=== PATIENT | female | born 1935 | race Caucasian/White ===

== ENCOUNTER 2019-12-23 14:30 | Emergency (ER) | payer MEDICARE, SELFPAY ==
[2019-12-23 16:34] VITALS: BP 216/79; PULSE 80; RESP 14; TEMP 36.9; O2SAT 100
--- NOTE | 2019-12-23 16:40 | ED.WEAKNESS ---
HPI - Weakness General Chief complaint: Weakness Stated complaint: numbness in hand leg fall Time Seen by Provider: 12/23/19 16:39 Source: patient Mode of arrival: ambulatory Limitations: no limitations History of Present Illness HPI Narrative: Last week patient had weakness to her right side that lasted 5 minutes. Symptoms went away completely on their own. Complaint: focal weakness Onset (ago): minute(s) (5) Duration: constant Severity scale (1-10): 9 Quality: tingling and numbness Related Data Home Medications Medication Instructions Recorded Confirmed enalapril maleate 1.5 tab PO DAILY 12/23/19 12/23/19 levothyroxine 1 tab PO DAILY 12/23/19 12/23/19 Previous Rx's Medication Instructions Recorded aspirin [Aspirin Low Dose] 162 mg PO DAILY #60 tab 12/23/19 Allergies Allergy/AdvReac Type Severity Reaction Status Date / Time alendronate sodium Allergy Unknown UNKNOWN Unverified 11/24/19 18:42 [ALENDRONATE SODIUM] oxycodone [From OXYCONTIN] Allergy Unknown NAUSEA & Unverified 11/24/19 18:42 VOMITING, vomiting Review of Systems Constitutional: Constitutional: Reports no additional constitutional complaints Eyes: Eyes: Reports no additional eye complaints ENT: Denies dizziness Cardiovascular: Cardiovascular: Reports no additional cardiovascular complaints Respiratory: Respiratory: Reports as per HPI Gastrointestinal: Gastrointestinal: Reports no additional gastrointestinal complaints Genitourinary: Genitourinary: Reports no additional female genitourinary complaints Musculoskeletal: Musculoskeletal: Reports no additional musculoskeletal complaints Integumentary/Breasts: Skin/Breast: Denies rash Neurologic: Reports system reviewed and no additional complaints, except as documented, Denies dizziness and Reports Sensory deficit (Neuro) Psychiatric: Psychiatric: Denies anxiety [facility] Past Medical History Medical History (Updated 12/23/19 @ 19:40 by Alden Paz MD) Hypertension Hypothyroid Social History Social History Advance Directives: No Advance Directives Information Provided: Yes Physical Exam Vital Signs: Vital Signs: Vital Signs Temp Pulse Resp BP Pulse Ox 12/23/19 19:25 98.3 F 77 16 171/61 H 100 12/23/19 16:58 98.2 F 88 18 148/80 H 100 12/23/19 16:34 98.5 F 80 14 216/79 H 100 Body Mass Index 25.4 Const: General: healthy appearing Nutritional Appearance: average body habitus Orientation/consciousness: oriented to person and patient oriented x3 Limitations: no limitations HENMT: Head: Yes normal to inspection Ears: external ears normal General nose exam: Normal external nose present Mouth: Normal oral and palatal mucosa present and oropharynx normal Throat: Yes posterior oropharynx normal Eyes: General: appearance normal, both eyes and all related structures Neck: Other: supple Neck: Yes normal visual inspection Chest: Chest palpation & inspection: normal inspection of the chest Resp: Auscultation: clear to auscultation bilaterally Cardio: Jugular venous distension: no JVD Rate: regular rate Rhythm: regular rhythm Heart sounds: S1 normal heart sound present and S2 normal heart sound present GI: Inspection: Yes normal to inspection Palpation (GI): Soft to palpation, nontender and No hepatosplenomegaly present Auscultation: normal bowel sounds : General: Yes no CVA tenderness Back/Spine/Pelvis: Back: no CVA tenderness Skin: General skin exam: no rashes or lesions noted Neuro: Other: NIH stroke scale is 0 General: oriented to person and patient oriented x3 Cranial nerves: Yes CN's II-XII intact bilaterally Motor exam (neuro): 5/5 motor strength present throughout Sensory Exam: Sensory deficit (Neuro) Extrem: General: Yes normal to inspection Psych: Appearance: grossly normal Course Course Course Narrative: CT and CTA normal discussed with daughter that this is TIA MDM - Weakness MDM Narrative Medical decision making narrative: stroke vs TIA work up most consistent with TIA Lab Data Result diagrams: 12/23/19 17:47 12/23/19 17:47 Labs: Lab Results 12/23/19 12/23/19 12/23/19 Range/Units 17:47 17:47 17:47 WBC 9.7 (4.8-10.8) X10*3/uL RBC 4.16 L (4.20-5.50) X10*6/uL Hgb 13.4 (12.0-16.0) g/dl Hct 39.4 (37-47) % MCV 94.7 (80-98) fL MCH 32.2 (27.0-33.0) pg MCHC 34.0 (31.0-35.0) g/dl RDW 12.7 (11.0-16.0) % Plt Count 225 (160-400) X10*3/uL MPV 11.5 (9.4-12.3) fL Immature Gran % (Auto) 0.5 H (0.0-0.4) % Neut % (Auto) 58.1 (45-73) % Lymph % (Auto) 34.1 (20-40) % Garland % (Auto) 5.5 (2-11) % Eos % (Auto) 1.3 (0-4) % Baso % (Auto) 0.5 (0-2) % Lymph # (Auto) 3.3 (1.2-4.9) X10*3/uL Garland # (Auto) 0.5 (0.1-1.2) X10*3/uL Eos # (Auto) 0.1 (0.0-0.4) X10*3/uL Baso # (Auto) 0.1 (0.0-0.2) X10*3/uL Abs Immat Gran (auto) 0.05 H (0.00-0.03) X10*3/uL Absolute Neuts (auto) 5.7 (2.0-8.3) X10*3/uL Absolute Nucleated RBC 0.000 (0.0-0.012) X10*3/uL Nucleated RBC % (auto) 0.0 (0.0-0.2) /100WBC Sodium 140 (135-145) mmol/L Potassium 4.6 (3.3-5.1) mmol/l Chloride 107 (96-108) mmol/L Carbon Dioxide 24 (22-29) mmol/L Anion Gap 14 (12-20) BUN 29 H (9-16) mg/dL Creatinine 0.82 (0.5-1.4) mg/dL Estim Creat Clear Calc 46.2 Estimated GFR > 60 Random Glucose 91 (60-115) mg/dL Calcium 9.6 (8.4-10.2) mg/dL Troponin I High Sens (<3.5-17.0) ng/L Hold Red Top See Note 12/23/19 Range/Units 17:48 WBC (4.8-10.8) X10*3/uL RBC (4.20-5.50) X10*6/uL Hgb (12.0-16.0) g/dl Hct (37-47) % MCV (80-98) fL MCH (27.0-33.0) pg MCHC (31.0-35.0) g/dl RDW (11.0-16.0) % Plt Count (160-400) X10*3/uL MPV (9.4-12.3) fL Immature Gran % (Auto) (0.0-0.4) % Neut % (Auto) (45-73) % Lymph % (Auto) (20-40) % Garland % (Auto) (2-11) % Eos % (Auto) (0-4) % Baso % (Auto) (0-2) % Lymph # (Auto) (1.2-4.9) X10*3/uL Garland # (Auto) (0.1-1.2) X10*3/uL Eos # (Auto) (0.0-0.4) X10*3/uL Baso # (Auto) (0.0-0.2) X10*3/uL Abs Immat Gran (auto) (0.00-0.03) X10*3/uL Absolute Neuts (auto) (2.0-8.3) X10*3/uL Absolute Nucleated RBC (0.0-0.012) X10*3/uL Nucleated RBC % (auto) (0.0-0.2) /100WBC Sodium (135-145) mmol/L Potassium (3.3-5.1) mmol/l Chloride (96-108) mmol/L Carbon Dioxide (22-29) mmol/L Anion Gap (12-20) BUN (9-16) mg/dL Creatinine (0.5-1.4) mg/dL Estim Creat Clear Calc Estimated GFR Random Glucose (60-115) mg/dL Calcium (8.4-10.2) mg/dL Troponin I High Sens 3.6 (<3.5-17.0) ng/L Hold Red Top Imaging Data CT scan - head: Radiologist's impression: no acute stroke seen no blood, CTA is normal ECG Data Attestation: I personally reviewed and interpreted this ECG as follows: ECG interpretation date: 12/23/19 Interpretation: sinus 80, no st or twave changes Discharge Plan Discharge Clinical Impression: Transient ischemic attack Patient Disposition: Home, Self-Care Instructions: Transient Ischemic Attack (ED) Prescriptions: New aspirin [Aspirin Low Dose] 81 mg tablet,delayed release (DR/EC) 162 mg PO DAILY Qty: 60 RF: 0 No Action enalapril maleate 20 mg tablet 1.5 tab PO DAILY RF: 0 levothyroxine 100 mcg tablet 1 tab PO DAILY RF: 0 Referrals: Abelardo Lubin PA-C [Physician [employer]] - 2 days (Call for follow up of TIA and started on BABy ASA)
--- NOTE | 2019-12-23 16:42 | CT_ITS ---
EXAMINATION: CT ANGIOGRAM HEAD CT ANGIOGRAM NECK CLINICAL INFORMATION: Transient ischemic attack. COMPARISON: CT head from 12/23/2019. TECHNIQUE: Initial noncontrast it manager imaging of the head and neck was performed. Comparison is made with noncontrast head CT from earlier today. Test bolus sequences followed by intravenous administration 70 mL of Omnipaque 350. Helical imaging was performed in the axial plane from the aortic arch to the skull vertex. Delayed postcontrast imaging of the head was also performed. The data was processed at the ambulatory technologist's workstation for generation of MIP sequences. Angled MIPs and volume rendered reformatted images were also generated at an offline 3D workstation. Stenoses are assessed in accordance with NASCET criteria unless otherwise indicated. DLP: 1353 mGy-cm This CT examination was performed using dose optimization techniques as appropriate, variously including the following: *Automated exposure control. *Adjustment of mA and/or kV according to patient size (this includes techniques or standardized protocols for targeted exams where dose is matched to indication/reason for exam; i.e. extremities or head). *Use of iterative reconstruction technique. FINDINGS: CT Head: There is no evidence of acute intracranial hemorrhage or edematous territorial infarction. Bilateral basal ganglia mineralization. Scattered hypoattenuation in the periventricular and deep white matter are consistent with mild to moderate microangiopathy. Song-white matter differentiation is preserved. Proportional prominence of the ventricles and sulcal spaces. No evidence for obstructive hydrocephalus. No abnormal mass effect or midline shift. No extra-axial fluid collections. No pathologic intra-axial enhancement or regional oligemia. No acute soft tissue or osseous abnormalities. The mastoid air cells and paranasal sinuses are clear. CT Neck: Partial atrophy of the thyroid gland. The remaining cervical soft tissues are within normal limits. Moderate multilevel degenerative spondyloarthropathy of the cervical spine. Advanced degenerative disc disease from C3-C7. Moderate calcification along the transverse ligament of the atlas. Chronic partially healed fracture of the tip of the C7 spinous process. Mild multilevel facet and uncovertebral joint arthropathy causes a degree of osseous encroachment on the neural foramina from C3-C7. CT Upper Chest: The visualized lung apices and upper mediastinum are within normal limits. Neck CTA: Aortic Arch: Normal contour and caliber mild to moderate calcific atherosclerotic disease. Two vessel branching pattern of the arch with left common carotid artery arising from the brachiocephalic trunk. Great Vessel Origins: No flow-limiting stenosis of the branch origins. Right Common Carotid Artery: Normal opacification without focal stenosis or occlusion. Cervical Right Internal Carotid Artery: Normal opacification without focal stenosis or occlusion. Left Common Carotid Artery: Normal opacification without focal stenosis or occlusion. Cervical Left Internal Carotid Artery: Mild calcific atherosclerotic disease of the carotid bulb and proximal internal carotid artery without flow-limiting stenosis. Cervical Right Vertebral Artery: Co-dominant. Normal opacification without focal stenosis or occlusion. Cervical Left Vertebral Artery: Co-dominant. Normal opacification without focal stenosis or occlusion. Brain CTA: Intracranial Internal Carotid Arteries: Calcific atherosclerotic disease of the intracranial internal carotid arteries without occlusion or flow-limiting stenosis. Normal contrast opacification of the petrous, cavernous, paraophthalmic, and supraclinoid segments of the internal carotid arteries without focal stenosis. Right Anterior Cerebral Artery: The A1 segment is mildly diminutive. Normal opacification of the distal segments of the GHAN[place]. Left Anterior Cerebral Artery: Normal A1 segment. Normal opacification of the distal segments of the GHAN[place]. Anterior Communicating Artery: Normal. Right Middle Cerebral Artery: Normal opacification of the M1 segment of the MCA without focal stenosis or occlusion. Normal arborization of the distal segments. Left Middle Cerebral Artery: Normal opacification of the M1 segment of the MCA without focal stenosis or occlusion. Normal arborization of the distal segments. Right Vertebral Artery: Normal opacification of the V4 segment. Normal opacification of the proximal segments of the posterior inferior cerebellar artery. Left Vertebral Artery: Normal opacification of the V4 segment. Normal opacification of the proximal segments of the posterior inferior cerebellar artery. Basilar Artery: Normal opacification without focal stenosis or occlusion. Normal appearance of the proximal superior cerebellar arteries. Right Posterior Cerebral Artery: Normal P1 segment. Normal opacification of the distal segments of the ENGINEERING PROFESSOR. Left Posterior Cerebral Artery: Normal P1 segment. Normal opacification of the distal segments of the ENGINEERING PROFESSOR. Normal opacification of the superior sagittal, straight, transverse, and sigmoid sinuses. IMPRESSION: 1. No evidence of acute intracranial hemorrhage or edematous territorial infarction. 2. CTA of the head and neck without proximal occlusion or flow-limiting stenosis. 3. Mild to moderate underlying microangiopathy and generalized cerebral volume loss. 4. 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 This critical result was discussed with Dr. Paz at 19:26 on 12/23/2019 and it was ascertained that the content and urgency of the report was understood at the time of direct communication.
--- NOTE | 2019-12-23 16:43 | CT_ITS ---
EXAMINATION: CT HEAD WITHOUT CONTRAST (STROKE PROTOCOL) CLINICAL INFORMATION: Stroke protocol. Right-sided weakness that lasted for 5 minutes COMPARISON: None TECHNIQUE: Contiguous axial imaging was performed from the skull base to vertex without intravenous administration of contrast. This CT examination was performed using dose optimization techniques as appropriate, variously including the following: *Automated exposure control *Adjustment of mA and/or kV according to patient size (this includes techniques or standardized protocols for targeted exams where dose is matched to indication/reason for exam; i.e. extremities or head) *Use of iterative reconstruction technique DLP: 569 mGy-cm FINDINGS: There is no intracranial hemorrhage, hematoma, or extra-axial fluid collection. The ventricles are normal in size. There is no hydrocephalus, edema, or mass effect. The mccain-white matter differentiation appears symmetric. There is no acute infarct or mass lesion. There are prominent CSF spaces seen anteriorly bilaterally likely related to atrophic change rather than subdural hygromas as there appear to be veins traversing the CSF space. There are some basal ganglia calcifications present left greater than right. The calvarium appears intact. There is no pneumocephalus or orbital emphysema. The visualized sinuses and middle ears and mastoid air cells show no significant mucosal thickening. There are no air-fluid levels. IMPRESSION: No acute intracranial pathology. This critical result was discussed with Dr. Paz at 5:04 PM on December 23, 2019. It was ascertained that the content and urgency of the report was understood at the time of direct communication.
--- NOTE | 2019-12-23 16:43 | ECG_ITS ---
Test Reason : WEAKNESS Blood Pressure : / mmHG Vent. Rate : 078 BPM Atrial Rate : 078 BPM P-R Int : 000 ms QRS Dur : 072 ms QT Int : 386 ms P-R-T Axes : 000 024 053 degrees QTc Int : 440 ms Normal sinus rhythm Nonspecific ST abnormality Inferior leads Abnormal ECG Premature atrial complexes is no longer Present Referred By: Alden Paz Electronically Signed By:IVANA VERMA MD
[2019-12-23 16:58] VITALS: BP 148/80; PULSE 88; RESP 18; TEMP 36.8; O2SAT 100; BMI 25.4
[2019-12-23 18:12] LABS: MANUAL DIFF FLAG NO
[2019-12-23 18:21] LABS: Basophils Absolute Auto 0.1 X10*3/uL (0.0-0.2); Basophils Percent Auto 0.5 % (0-2); Eosinophils Absolute Auto 0.1 X10*3/uL (0.0-0.4); Eosinophils Percent Auto 1.3 % (0-4); Hematocrit 39.4 % (37-47); Hemoglobin 13.4 g/dl (12.0-16.0); Imm Gran Abs Auto 0.05 X10*3/uL (0.00-0.03); Imm Gran Pct Auto 0.5 % (0.0-0.4); Lymphocytes Absolute Auto 3.3 X10*3/uL (1.2-4.9); Lymphocytes Percent Auto 34.1 % (20-40); Mean Corpuscular Hemoglobin 32.2 pg (27.0-33.0); Mean Corpuscular Volume 94.7 fL (80-98); Mean Platelet Volume 11.5 fL (9.4-12.3); Monocytes Absolute Auto 0.5 X10*3/uL (0.1-1.2); Monocytes Percent Auto 5.5 % (2-11); Neutrophils Absolute Auto 5.7 X10*3/uL (2.0-8.3); Neutrophils Percent Auto 58.1 % (45-73); Platelet Count 225 X10*3/uL (160-400); Red Blood Count 4.16 X10*6/uL (4.20-5.50); Red Cell Distribution Width 12.7 % (11.0-16.0); White Blood Count 9.7 X10*3/uL (4.8-10.8)
[2019-12-23 18:35] LABS: Anion Gap 14 (12-20); Blood Urea Nitrogen 29 mg/dL (9-16); Calcium 9.6 mg/dL (8.4-10.2); Carbon Dioxide 24 mmol/L (22-29); Chloride 107 mmol/L (96-108); Creatinine Clr Calc Pharmacy 46.2; Estimated Glomerular Filt Rate > 60; Glucose Random 91 mg/dL (60-115); Potassium 4.6 mmol/l (3.3-5.1); Sodium 140 mmol/L (135-145)
[2019-12-23 18:42] LABS: Troponin-I High Sensitivity 3.6 ng/L (<3.5-17.0)
[2019-12-23] MEDS: iohexoL 350 MG/ML 100 ML INFUS..BTL IV (18:55)
[2019-12-23 19:25] VITALS: BP 171/61; PULSE 77; RESP 16; TEMP 36.8; O2SAT 100
== END 2019-12-23 20:14 | disposition home or self-care (01) ==
PROVIDERS: Emergency Provider Emergency Medicine
DX: G45.9 Transient cerebral ischemic attack, unspecified (principal); R53.1 Weakness; Z79.899 Other long term (current) drug therapy
CPT/HCPCS: 36415; 70450; 70496; 70498; 80048; 84484; 85025; 93005; 99284

== ENCOUNTER 2020-02-13 11:44 | Emergency (ER) | payer MEDICARE, SELFPAY ==
--- NOTE | 2020-02-13 12:41 | ECG_ITS ---
Test Reason : SHOUDER PAIN Blood Pressure : / mmHG Vent. Rate : 083 BPM Atrial Rate : 083 BPM P-R Int : 156 ms QRS Dur : 072 ms QT Int : 384 ms P-R-T Axes : 035 029 056 degrees QTc Int : 451 ms Normal sinus rhythm Normal ECG When compared with ECG of 23-DEC-2019 18:31, No significant changes seen Referred By: Radha Rolon Electronically Signed By:SAMMY ROCK
--- NOTE | 2020-02-13 12:41 | XR_ITS ---
EXAMINATION: XR THORACOLUMBAR SPINE CLINICAL INFORMATION: Mid back pain COMPARISON: None TECHNIQUE: 2 views. FINDINGS: There is normal thoracic kyphosis. The vertebral heights, alignment and disc heights are normal. No visible acute fracture, dislocation or lytic process seen. The paravertebral soft tissues are normal. XR/XR thoracic spine 2V IMPRESSION: Unremarkable dorsal spine exam.
[2020-02-13 12:49] VITALS: BP 146/66; PULSE 87; RESP 19; TEMP 36.8; O2SAT 98; BMI 26.4
--- NOTE | 2020-02-13 12:50 | ED_ITS ---
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 The patient tells me she has history of chronic back pain and she has had this same pain for many years. She feels like today it is not improving after doing several days of Tylenol at home. The pain is the same and not worsening. She has no associated weakness, numbness or tingling. No chest pain or shortness of breath or abdominal pain or vomiting or diarrhea or cough. No injury or trauma. MD elicited complaint: back pain Pertinent past history: prior back pain Onset (ago): month(s) Timing: intermittent Severity: moderate Similar Symptoms Previously: Yes Quality: aching Location: thoracic spine Radiation: none Exacerbating factors: movement Relieving factors: immobilization Associated symptoms: denies other symptoms Work related injury: No Related Data Home Medications Medication Instructions Recorded Confirmed enalapril maleate 1.5 tab PO DAILY 12/23/19 12/23/19 levothyroxine 1 tab PO DAILY 12/23/19 12/23/19 Previous Rx's Medication Instructions Recorded aspirin [Aspirin Low Dose] 162 mg PO DAILY #60 tab 12/23/19 acetaminophen 650 mg PO Q6H PRN #20 cap 02/13/20 cyclobenzaprine 5 mg PO TID PRN #10 tab 02/13/20 lidocaine [Lidoderm] 1 patch TOPICAL DAILY #15 ea 02/13/20 Allergies Allergy/AdvReac Type Severity Reaction Status Date / Time alendronate sodium Allergy Unknown UNKNOWN Unverified 11/24/19 18:42 [ALENDRONATE SODIUM] oxycodone [From OXYCONTIN] Allergy Unknown NAUSEA & Verified 02/13/20 12:51 VOMITING, vomiting Review of Systems Review of Systems: Yes all other systems are reviewed and are negative Constitutional: Constitutional: Reports no additional constitutional complaints, Denies body ache(s), Denies chills, Denies fever(s), Denies headache(s) and Denies weakness Eyes: Eyes: Reports no additional eye complaints and Denies change in vision ENT: Reports system reviewed and no additional complaints, except as documented, Denies dizziness, Denies headache(s), Denies nasal congestion, Denies nasal discharge and Denies neck pain Cardiovascular: Cardiovascular: Reports no additional cardiovascular complaints, Denies chest pain, Denies leg edema and Denies dyspnea Respiratory: Respiratory: Reports no additional respiratory complaints, Denies cough and Denies dyspnea Gastrointestinal: Gastrointestinal: Reports no additional gastrointestinal complaints, Denies abdominal pain, Denies diarrhea, Denies nausea and Denies vomiting Genitourinary: Genitourinary: Reports no additional female genitourinary complaints and Denies urinary incontinence Musculoskeletal: Musculoskeletal: Reports no additional musculoskeletal complaints, Reports back pain, Denies arthralgias, Denies joint swelling, Denies neck pain, Denies numbness and Denies tingling Integumentary/Breasts: Skin/Breast: Reports system reviewed and no additional complaints, except as docu and Denies rash Neurologic: Reports system reviewed and no additional complaints, except as documented, Denies Abnormal speech present, Denies dizziness, Denies headache(s), Denies numbness, Denies tingling and Denies weakness [facility] Past Medical History Attestation statement: The following information was validated with the patient. Source: old records reviewed and nursing notes reviewed Medical History Hypertension Hypothyroid Social History Social History Advance Directives: No Advance Directives Information Provided: No Physical Exam Vital Signs: Vital Signs: Last Vital Signs Temp 98.2 F 02/13/20 12:49 Pulse 87 02/13/20 12:49 Resp 19 02/13/20 12:49 BP 146/66 H 02/13/20 12:49 Pulse Ox 98 02/13/20 12:49 Body Mass Index 26.4 Const: General: cooperative, healthy appearing, comfortable and no acute distress Orientation/consciousness: patient oriented x3 Limitations: no limitations HENMT: Head: Yes normal to inspection Ears: hearing grossly normal bilaterally General nose exam: Normal external nose present Face and sinus: Yes normal facial exam Mouth: Normal oral and palatal mucosa present Throat: Yes posterior oropharynx normal Eyes: General: appearance normal, both eyes and all related structures Pupils: Equal, round and reactive pupils present Neck: Neck: Yes normal visual inspection Chest: Chest palpation & inspection: normal inspection of the chest Resp: Effort & Inspection: normal respiratory effort Auscultation: clear to auscultation bilaterally Cardio: Rate: regular rate Rhythm: regular rhythm Peripheral pulses: Peripheral pulses 2+ throughout GI: Inspection: Yes normal to inspection Palpation (GI): Soft to palpation and nontender Auscultation: normal bowel sounds Back/Spine/Pelvis: Other: Right upper back paraspinal and soft tissue tenderness. There is no midline tenderness, step-offs or deformities. Thoracic/Lumbar Spine: thoracic and lumbar spine normal to inspection Skin: General skin exam: no rashes or lesions noted Neuro: General: patient oriented x3, no focal motor deficits and normal sensation to monofilament Cranial nerves: Yes CN's II-XII intact bilaterally, Yes Equal, round and reactive pupils present, Yes Bilaterally intact EOM present, Yes Nystagmus not present, Yes Normal facial strength present and Yes Midline tongue present Cognition (Neuro): normal cognition Speech: No Abnormal speech present Gait exam (Neuro): Normal gait present Motor exam (neuro): 5/5 motor strength present throughout Sensory Exam: Normal double simultaneous stimulation for sensation Deep tendon reflexes (DTR's): Right triceps reflex intensity grade: 2+, Left triceps reflex intensity grade: 2+, Rt Biceps (C5, C6): 2+, Left biceps reflex intensity grade: 2+, Right brachioradialis reflex intensity grade: 2+, Left brachioradialis reflex intensity grade: 2+, Right patellar reflex intensity grade: 2+, Left patellar reflex intensity grade: 2+, Right ankle reflex intensity grade: 2+ and Left ankle reflex intensity grade: 2+ Coordination: [id number] test normal, [id number] test normal and tandem gait normal Extrem: General: Yes normal to inspection Course Course Course Narrative: 84-year-old female with acute on chronic right upper back pain times the last few days. Unrelieved with Tylenol at home. The patient's exam is more consistent with musculoskeletal pain. She has no bony abnormalities, midline tenderness or step-offs. Due to age will check x-ray, EKG. Will provide analgesia and reassess. 1400- EKG and imaging unremarkable. Likely muscular strain. Patient is feeling improved after receiving analgesia here. Reviewed worrisome signs and symptoms and when to return to the emergency department. Comfortable with discharge home. MDM - Back Pain/Injury MDM Narrative Medical decision making narrative: thoracic strain,compression fx, Acs, pe Less likely PE with symptoms for months and no hypoxia or tachycardia risk factors. Less likely ACS with symptoms for months and unremarkable EKG and no complaints chest pain. Less likely compression fracture with unremarkable imaging. Medical Records Attestation: I reviewed the patient's medical records. Lab Data Attestation: I reviewed the patient's lab results. Imaging Data thoracic xray: Attestation: I personally reviewed and interpreted this imaging study as follows: Radiologist's impression: EXAMINATION: XR THORACOLUMBAR SPINE CLINICAL INFORMATION: Mid back pain COMPARISON: None TECHNIQUE: 2 views. FINDINGS: There is normal thoracic kyphosis. The vertebral heights, alignment and disc heights are normal. No visible acute fracture, dislocation or lytic process seen. The paravertebral soft tissues are normal. XR/XR thoracic spine 2V IMPRESSION: Unremarkable dorsal spine exam. ECG Data Attestation: I personally reviewed and interpreted this ECG as follows: ECG interpretation date: 02/13/20 ECG interpretation time: 13:09 Interpretation: Normal sinus rhythm with a rate of 83, normal MS, normal QRS, normal QT, normal ST segment Discharge Plan Discharge Clinical Impression: Muscle strain Back pain Qualifiers: Back pain location: thoracic back pain Chronicity: chronic Back pain laterality: right Qualified Code(s): M54.6 - Pain in thoracic spine Patient Disposition: Home, Self-Care Instructions: Muscle Strain (ED) Additional Instructions: Heat to the area gentle stretching Follow-up with PCP in 3-4 days if no better Prescriptions: New acetaminophen 325 mg capsule 650 mg PO Q6H PRN (Reason: fever or pain) Qty: 20 RF: 0 cyclobenzaprine 5 mg tablet 5 mg PO TID PRN (Reason: muscle spasm) Qty: 10 RF: 0 lidocaine [Lidoderm] 5 % adhesive patch,medicated 1 patch topical DAILY Qty: 15 RF: 0 No Action enalapril maleate 20 mg tablet 1.5 tab PO DAILY RF: 0 levothyroxine 100 mcg tablet 1 tab PO DAILY RF: 0 aspirin [Aspirin Low Dose] 81 mg tablet,delayed release (DR/EC) 162 mg PO DAILY Qty: 60 RF: 0 Referrals: Physician,Unknown [Primary Care Provider] - 2 days Interventions: ED Discharge Assessment Last Done: 02/13/20 14:05 Discharge Date/Time: 02/13/20 14:05 Print Language: Serbian
[2020-02-13] MEDS: Cyclobenzaprine HCl 5 MG TABLET PO (13:00)
[2020-02-13] MEDS: Lidocaine 4 % Patch ADH..PATCH 1 PATCH TRANSDERMA (13:00)
[2020-02-13] MEDS: Acetaminophen 325 MG TABLET 975 MG PO (13:01)
== END 2020-02-13 14:05 | disposition home or self-care (01) ==
PROVIDERS: Emergency Provider Emergency Medicine
DX: S29.012A Strain of muscle and tendon of back wall of thorax, initial encounter (principal); X58.XXXA Exposure to other specified factors, initial encounter; I10 Essential (primary) hypertension; Y93.9 Activity, unspecified; Y92.9 Unspecified place or not applicable; Y99.9 Unspecified external cause status
CPT/HCPCS: 72070; 93005; 99283

== ENCOUNTER 2020-12-15 13:17 | Emergency (ER) | payer MEDICARE, SELFPAY ==
--- NOTE | ~2020-12-15 | XR_ITS ---
EXAMINATION: XR HAND, left XR hand/wrist, right CLINICAL INFORMATION: Fall with hand and wrist pain COMPARISON: None TECHNIQUE: PA, lateral, and oblique views of the left hand. 4 views of the right hand/wrist: FINDINGS: Left hand: No acute fracture or dislocation. Dystrophic degenerative calcifications and chondrocalcinosis of the carpus and the 2nd MCP joint. Osteopenia. Right hand/wrist: There is an impacted fracture of the distal radius with dorsal angulation. Chondrocalcinosis and degenerative changes of the 1st CMC joint and throughout the interphalangeal joints. There is soft tissue swelling around the 1st with no acute abnormality. XR/XR hand LT 2V IMPRESSION: Left hand: No acute fracture or dislocation. Right hand/wrist: Intra-articular fracture of the distal radius with impaction and dorsal angulation. Soft tissue swelling around the 1st MCP joint with no acute osseous abnormality.
--- NOTE | ~2020-12-15 | XR_ITS ---
EXAMINATION: XR WRIST, RIGHT CLINICAL INFORMATION: Postreduction COMPARISON: Same day radiographs TECHNIQUE: PA, lateral, and oblique views of the right wrist. FINDINGS: Persistent dorsal angulation of the distal radius fracture although alignment is improved. XR/XR wrist RT 2V IMPRESSION: Persistent dorsal angulation of the distal radius fracture although alignment is improved.
--- NOTE | ~2020-12-15 | CT_ITS ---
EXAMINATION: HEAD CT WITHOUT CONTRAST CERVICAL SPINE CT WITHOUT CONTRAST MAXILLOFACIAL CT WITHOUT CONTRAST CLINICAL INFORMATION: Fall, injury COMPARISON: CT head 12/23/2019 TECHNIQUE: Contiguous axial imaging of the head was performed without the administration of IV contrast. Axial multidetector volumetric images were also performed through the facial bones without contrast from the frontal sinuses through the mandible. Multiplanar reconstructed images in coronal and sagittal orientations were submitted. Axial imaging cervical spine. Sagittal and coronal reconstructions. DOSE: 1220 mGy-cm FINDINGS: HEAD: There is no evidence of acute intracranial hemorrhage or territorial infarction. No abnormal mass-effect or midline shift. No extra-axial fluid collections. Song to white matter differentiation is well preserved. There is cerebral volume loss, with sulcal prominence. Bilateral basal ganglia mineralization. No acute calvarial fracture.. The sinuses and mastoid air cells are clear. Cervical spine: Craniocervical and atlantoaxial articulation is maintained. Straightening of cervical curvature. Posterior alignment is obtained. Chronic ossification at the C1-C2 articulation. No acute fracture is seen. Moderate to severe cervical spondylosis, with more prominent changes of moderate to severe disc degeneration at C3-C7. Multilevel facet degeneration. No significant prevertebral soft tissue swelling. No suspicious thyroid findings. No lymphadenopathy seen. Mild biapical pleural scarring. MAXILLOFACIAL: There is a comminuted mildly displaced intra-articular fracture of the left mandibular head, new as compared to the prior CT of 12/23/2019. The maxilla, pterygoid plates, nasal bones, zygomatic arches, paranasal sinus mckinley, and bony orbits are intact. The paranasal sinuses and mastoid air cells remain well-aerated. No significant soft tissue findings. CT/CT cervical spine wo con IMPRESSION: CT HEAD: 1. No CT evidence acute intracranial hemorrhage or territorial infarction 2. Chronic changes as detailed above. CT cervical spine: 1. No CT evidence of acute fracture or subluxation. 2. Moderate to severe cervical spondylosis. Maxillofacial CT: 1. Comminuted mildly displaced intra-articular fracture of the left mandibular head.
--- NOTE | ~2020-12-15 | XR_ITS ---
EXAMINATION: XR HAND, left XR hand/wrist, right CLINICAL INFORMATION: Fall with hand and wrist pain COMPARISON: None TECHNIQUE: PA, lateral, and oblique views of the left hand. 4 views of the right hand/wrist: FINDINGS: Left hand: No acute fracture or dislocation. Dystrophic degenerative calcifications and chondrocalcinosis of the carpus and the 2nd MCP joint. Osteopenia. Right hand/wrist: There is an impacted fracture of the distal radius with dorsal angulation. Chondrocalcinosis and degenerative changes of the 1st CMC joint and throughout the interphalangeal joints. There is soft tissue swelling around the 1st with no acute abnormality. XR/XR hand wrist RT IMPRESSION: Left hand: No acute fracture or dislocation. Right hand/wrist: Intra-articular fracture of the distal radius with impaction and dorsal angulation. Soft tissue swelling around the 1st MCP joint with no acute osseous abnormality.
[2020-12-15 14:41] VITALS: BP 115/73; PULSE 78; RESP 18; TEMP 36.1; O2SAT 99; BMI 23.9
--- NOTE | 2020-12-15 15:52 | ED.FALL ---
HPI - Fall General Chief Complaint: Fall Stated Complaint: fall - multiple injuries Time Seen by Provider: 12/15/20 15:44 Source: patient and family Mode of arrival: ambulatory Limitations: no limitations History of Present Illness HPI Narrative: 85-year-old female with a past medical history of hypertension and hypothyroidism here with complaints of fall. 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 She was walking with her when she lost her balance falling forward striking her head and face on the ground. She tells me she tried to break her falls with both of her hands. She is complaining of pain to both of her hands and some pain to her face. No headache, neck pain, back pain, chest pain or abdominal pain. She is not on any anticoagulation. She is unsure when her last tetanus shot was. Related Data Home Medications Medication Instructions Recorded Confirmed enalapril maleate 20 mg tablet 1.5 tab PO DAILY 12/23/19 12/23/19 levothyroxine 100 mcg tablet 1 tab PO DAILY 12/23/19 12/23/19 Previous Rx's Medication Instructions Recorded aspirin 81 mg tablet,delayed 162 mg PO DAILY #60 tab 12/23/19 release (Aspirin Low Dose) acetaminophen 325 mg capsule 650 mg PO Q6H PRN #20 cap 02/13/20 cyclobenzaprine 5 mg tablet 5 mg PO TID PRN #10 tab 02/13/20 lidocaine 5 % topical patch 1 patch TOPICAL DAILY #15 ea 02/13/20 (Lidoderm) hydrocodone 5 mg-acetaminophen 300 1 tab PO Q6H PRN #8 tab 12/15/20 mg tablet ondansetron 4 mg disintegrating 4 mg PO Q6H PRN #10 tab 12/15/20 tablet Allergies Allergy/AdvReac Type Severity Reaction Status Date / Time alendronate sodium Allergy Unknown UNKNOWN Verified 12/15/20 14:41 [ALENDRONATE SODIUM] oxycodone [From OXYCONTIN] Allergy Unknown NAUSEA & Verified 02/13/20 12:51 VOMITING, vomiting Review of Systems Review of Systems: Yes all other systems are reviewed and are negative Constitutional: Constitutional: Reports no additional constitutional complaints, Denies body ache(s), Denies chills, Denies fever(s), Denies headache(s) and Denies weakness Eyes: Eyes: Reports no additional eye complaints and Denies change in vision ENT: Reports system reviewed and no additional complaints, except as documented, Denies dizziness, Denies headache(s), Denies nasal congestion, Denies nasal discharge and Denies neck pain Cardiovascular: Cardiovascular: Reports no additional cardiovascular complaints, Denies chest pain, Denies leg edema and Denies dyspnea Respiratory: Respiratory: Reports no additional respiratory complaints, Denies cough and Denies dyspnea Gastrointestinal: Gastrointestinal: Reports no additional gastrointestinal complaints, Denies abdominal pain, Denies diarrhea, Denies nausea and Denies vomiting Genitourinary: Genitourinary: Reports no additional female genitourinary complaints and Denies urinary incontinence Musculoskeletal: Musculoskeletal: Reports no additional musculoskeletal complaints, Denies back pain, Reports arthralgias, Reports joint swelling, Reports limited range of motion, Denies neck pain, Denies numbness and Denies tingling Integumentary/Breasts: Skin/Breast: Reports system reviewed and no additional complaints, except as docu and Denies rash Neurologic: Reports system reviewed and no additional complaints, except as documented, Denies Abnormal speech present, Denies dizziness, Denies headache(s), Denies numbness, Denies tingling and Denies weakness PMFSH Past Medical History Attestation statement: The following information was validated with the patient. Source: old records reviewed and nursing notes reviewed Medical History Hypertension Hypothyroid Social History Social History Advance Directives: No Physical Exam Vital Signs: Vital Signs: Last Vital Signs Temp 97 F 12/15/20 14:41 Pulse 78 12/15/20 14:41 Resp 18 12/15/20 14:41 BP 115/73 12/15/20 14:41 Pulse Ox 99 12/15/20 14:41 Body Mass Index 23.9 Const: General: cooperative, healthy appearing, comfortable and no acute distress Orientation/consciousness: patient oriented x3 Limitations: no limitations HENMT: Head: Yes normal to inspection Head images: 1. abrasions 2. abrasions Ears: hearing grossly normal bilaterally and TM's normal bilaterally General nose exam: Normal external nose present Face and sinus: Yes normal facial exam Mouth: Normal oral and palatal mucosa present Throat: Yes posterior oropharynx normal, Yes tonsils normal and Yes uvula midline Eyes: General: appearance normal, both eyes and all related structures Pupils: Equal, round and reactive pupils present Neck: Neck: Yes normal visual inspection, Yes full ROM, Yes no lymphadenopathy and Yes no meningeal signs Chest: Chest palpation & inspection: normal inspection of the chest Resp: Effort & Inspection: normal respiratory effort Auscultation: clear to auscultation bilaterally Cardio: Rate: regular rate Rhythm: regular rhythm Peripheral pulses: Peripheral pulses 2+ throughout GI: Inspection: Yes normal to inspection Palpation (GI): Soft to palpation and nontender Auscultation: normal bowel sounds Back/Spine/Pelvis: Thoracic/Lumbar Spine: thoracic and lumbar spine normal to inspection Skin: General skin exam: no rashes or lesions noted Neuro: General: patient oriented x3, no meningeal signs, no focal motor deficits and normal sensation to monofilament Cranial nerves: Yes CN's II-XII intact bilaterally, Yes Equal, round and reactive pupils present, Yes Bilaterally intact EOM present, Yes Nystagmus not present, Yes Normal facial strength present and Yes Midline tongue present Cognition (Neuro): normal cognition Speech: No Abnormal speech present Gait exam (Neuro): Normal gait present Motor exam (neuro): 5/5 motor strength present throughout Sensory Exam: Normal double simultaneous stimulation for sensation Extrem: Other: Ecchymosis, swelling to the distal right wrist and over the thenar. Palpable pulses noted. Limited range of motion due to pain. +deformity To the left thenar there is a small amount of ecchymosis with full range of motion and no obvious deformity General: Yes normal to inspection Course Course Course Narrative: Mechanical fall. Several abrasions to the face with a head strike. No loss of consciousness. Due to age will check CT head, face and cervical spine. Patient did brace herself with bilateral hands. There are some small ecchymosis noted on the left hand full range of motion. Unfortunately the right hand has a deformity with moderate swelling and ecchymosis and limited range of motion due to pain. Will check x-rays Tetanus updated. 1615-x-ray of right wrist is consistent with an impacted intra-articular distal radial fracture with dorsal angulation. Case discussed with [facility]. Recommended reduction and splint placement. 1630-hematoma block done at the bedside. Patient placed in finger traps. 1645-reduction done at the bedside with Dr. Bray. Patient placed in a sugar-tong splint. Postreduction films show anatomic alignment. Pending CT. The patient has several small abrasions on her chin and right cheek. These were cleansed with hydrogen peroxide and normal saline. Topical Steri-Strips applied with a antibiotic ointment. 1730-CT head negative. CT cervical spine negative. CT facial bones intra-articular fracture of the left mandibular head. Patient on exam has some mild tenderness. She is able to open and close her mouth independently although has some discomfort with doing so. 1737-discussed with [facility] surgeon Dr Karl Le at [facility]. He tells me the patient does not need to be transferred tonight. She can follow up next week in the office. Recommended liquid diet with some purees, pain control. Patient does not currently need antibiotics. 1815-discussed with daughter at bedside. Reviewed worrisome signs and symptoms and when to return to the emergency department. Comfortable discharge home. Procedures Nerve Block Nerve Block 1: Time out performed: No Local Anesthetic: lidocaine 2% Amount of anesthesia used (mL): 10 Side: right Nerve Blocks: hematoma block Procedure Successful: Yes Patient Tolerated Procedure: well Complications: none Orthopedic Fracture Reduction Fracture #1: Time Out Performed: No Side: right Fracture Reduction Location: radius Analgesia: hematoma block Technique: direct manipulation, traction/counter-traction and finger traps Post Reduction X-rays Demonstrate: anatomical reduction Post-reduction neuro exam: intact Post-reduction vascular exam: intact Splint Applied: Yes Patient Tolerated Procedure: well Orthopedic Splinting/Casting Injury #1: Side: right Upper Extremity Injury Location: wrist Upper Extremity Immobilizer: sugar tong splint Additional Comments: sling MDM - Fall Medical Records Attestation: I reviewed the patient's medical records. Lab Data Attestation: I reviewed the patient's lab results. Imaging Data right/left hand xray: Attestation: I personally reviewed and interpreted this imaging study as follows: Radiologist's impression: MPRESSION: Left hand: No acute fracture or dislocation. ? Right hand/wrist: Intra-articular fracture of the distal radius with impaction and dorsal angulation. ? Soft tissue swelling around the 1st MCP joint with no acute osseous abnormality. CT head/facial bones/cervical spine: Attestation: I personally reviewed and interpreted this imaging study as follows: Radiologist's impression: FINDINGS: HEAD: There is no evidence of acute intracranial hemorrhage or territorial infarction. No abnormal mass-effect or midline shift. No extra-axial fluid collections.? Song to white matter differentiation is well preserved. There is cerebral volume loss, with sulcal prominence. Bilateral basal ganglia mineralization. No acute calvarial fracture..? The sinuses and mastoid air cells are clear. Cervical spine: Craniocervical and atlantoaxial articulation is maintained. Straightening of cervical curvature. Posterior alignment is obtained. Chronic ossification at the C1-C2 articulation. No acute fracture is seen. Moderate to severe cervical spondylosis, with more prominent changes of moderate to severe disc degeneration at C3-C7. Multilevel facet degeneration. No significant prevertebral soft tissue swelling. No suspicious thyroid findings. No lymphadenopathy seen. Mild biapical pleural scarring. MAXILLOFACIAL: There is a comminuted mildly displaced intra-articular fracture of the left mandibular head, new as compared to the prior CT of 12/23/2019. The? maxilla, pterygoid plates, nasal bones, zygomatic arches, paranasal sinus mckinley, and bony orbits are intact. The paranasal sinuses and mastoid air cells remain well-aerated. No significant soft tissue findings. CT/CT facial bones wo con IMPRESSION: ? CT HEAD: 1. No CT evidence acute intracranial hemorrhage or territorial infarction 2. Chronic changes as detailed above. ? CT cervical spine: 1. No CT evidence of acute fracture or subluxation. 2. Moderate to severe cervical spondylosis. ? Maxillofacial CT: 1. Comminuted mildly displaced intra-articular fracture of the left mandibular head. Discharge Plan Discharge Clinical Impression: Right wrist fracture, Mandibular fracture, closed, Abrasion of face Patient Disposition: Home, Self-Care Instructions: Jaw Fracture in Adults (ED), Wrist Fracture in Adults (ED), Abrasion (ED) Additional Instructions: Sling for comfort Splint on at all times. Do not get it wet Elevate the arm Tylenol every 4 hrs as needed Call orthopedics Thursday if you do not hear from them Thursday. I have sent a stronger pain medication to the pharmacy as needed. Be careful it will make her sleepy and maybe fall She has a jaw fracture. Liquid diet with some soft foods as tolerated (mashed potatoes, scrambled eggs, etc). The [facility] doctor will call you Thursday. If you do not hear from him then call Thursday. Dr Karl Thayer [phone] [address] at [address] [place] [address] Wash the face gently. Remove the bandaged after 5 days. Then apply antibiotic ointment. Prescriptions: New hydrocodone-acetaminophen 5-300 mg tablet 1 tab PO Q6H PRN (Reason: pain) Qty: 8 RF: 0 ondansetron 4 mg tablet,disintegrating 4 mg PO Q6H PRN (Reason: nausea and vomiting) Qty: 10 RF: 0 No Action enalapril maleate 20 mg tablet 1.5 tab PO DAILY RF: 0 levothyroxine 100 mcg tablet 1 tab PO DAILY RF: 0 aspirin [Aspirin Low Dose] 81 mg tablet,delayed release (DR/EC) 162 mg PO DAILY Qty: 60 RF: 0 acetaminophen 325 mg capsule 650 mg PO Q6H PRN (Reason: fever or pain) Qty: 20 RF: 0 cyclobenzaprine 5 mg tablet 5 mg PO TID PRN (Reason: muscle spasm) Qty: 10 RF: 0 lidocaine [Lidoderm] 5 % adhesive patch,medicated 1 patch topical DAILY Qty: 15 RF: 0 Referrals: Sorin Adair MD [Physician] - 2 days
[2020-12-15] MEDS: Diphth,Pertus(ACell),Tet Adult 0.5 ML SYRINGE IM (16:14)
[2020-12-15] MEDS: Lidocaine HCl 2 % MPF 5 ML VIAL SUBCUT ×2 (16:15)
== END 2020-12-15 18:14 | disposition home or self-care (01) ==
PROVIDERS: Emergency Provider Emergency Medicine Emergency Medical Services
DX: S52.501A Unspecified fracture of the lower end of right radius, initial encounter for closed fracture (principal); S02.650A Fracture of angle of mandible, unspecified side, initial encounter for closed fracture; S00.81XA Abrasion of other part of head, initial encounter; G44.309 Post-traumatic headache, unspecified, not intractable; M79.601 Pain in right arm; M54.2 Cervicalgia; M25.531 Pain in right wrist; M79.642 Pain in left hand; M79.641 Pain in right hand; W01.0XXA Fall on same level from slipping, tripping and stumbling without subsequent striking against object, initial encounter; Y93.9 Activity, unspecified; Y92.410 Unspecified street and highway as the place of occurrence of the external cause; Y99.9 Unspecified external cause status; Z79.899 Other long term (current) drug therapy
CPT/HCPCS: 25605; 29105; 70450; 70486; 72125; 73100; 73110; 73120; 73130; 90471; 90715; 99283; 99284

== ENCOUNTER 2020-12-18 10:03 | Outpatient (REF) | payer MEDICARE, SELFPAY ==
--- NOTE | ~2020-12-18 | XR_ITS ---
EXAMINATION: XR WRIST, RIGHT CLINICAL INFORMATION: Right wrist pain. COMPARISON: Most recent right wrist radiographs dated 12/15/2020. TECHNIQUE: PA, lateral, and oblique views of the right wrist. FINDINGS: Distal radial fracture in unchanged anatomic alignment. No new fracture or dislocation. Normal carpal alignment. Mild osteophytes at the triscaphe and 1st carpometacarpal joints, unchanged. No osseous erosion. No abnormal soft tissue calcification. XR/XR wrist RT min 3V IMPRESSION: Distal radial fracture in unchanged anatomic alignment.
== END 2020-12-18 10:04 | disposition home or self-care (01) ==
LOC: HO.HOSX 10:03
PROVIDERS: Visit Provider Orthopaedic Surgery
DX: S52.501A Unspecified fracture of the lower end of right radius, initial encounter for closed fracture (principal); W18.30XA Fall on same level, unspecified, initial encounter; Y93.9 Activity, unspecified; Y92.9 Unspecified place or not applicable; Y99.9 Unspecified external cause status
CPT/HCPCS: 73110; 99202

== ENCOUNTER 2020-12-25 07:58 | Outpatient (REF) | payer MEDICARE, SELFPAY ==
--- NOTE | ~2020-12-25 | XR_ITS ---
EXAMINATION: XR WRIST, RIGHT CLINICAL INFORMATION: Wrist pain. COMPARISON: 12/18/2020 TECHNIQUE: PA, lateral, and oblique views of the right wrist. FINDINGS: The patient's cast has been removed. Again seen is a comminuted fracture involving the distal radius, unchanged in alignment without interval evidence of healing. Chondrocalcinosis is also present in the triangular fibrocartilage. Some periarticular calcification again seen around the radial aspect of the 2nd metacarpal head. XR/XR wrist RT min 3V IMPRESSION: Unchanged appearances when compared to the prior study demonstrating comminuted distal radial fracture, and chondrocalcinosis.
== END 2020-12-25 07:59 | disposition home or self-care (01) ==
LOC: HO.HOSX 07:58
PROVIDERS: Visit Provider Physician Assistant
DX: S52.501A Unspecified fracture of the lower end of right radius, initial encounter for closed fracture (principal)
CPT/HCPCS: 25600; 29085; 73110; 99212

== ENCOUNTER 2021-01-15 07:24 | Outpatient (REF) | payer MEDICARE, SELFPAY ==
--- NOTE | ~2021-01-15 | XR_ITS ---
EXAMINATION: XR WRIST, RIGHT CLINICAL INFORMATION: Wrist pain COMPARISON: 12/25/2020 TECHNIQUE: PA, lateral, and oblique views of the right wrist. FINDINGS: Bones are diffusely osteopenic. Again noted is the comminuted fracture of the distal radius with impaction through the metaphysis and intra-articular extension between the region of the scaphoid and lunate facets. There is 0.3 cm loss of radial length and 20 degrees dorsal tilt of the radial articular surface. There is slightly increased sclerosis/healing response at the fracture site. No new osseous injury. There is chondrocalcinosis of the wrist, including involvement of the triangular fibrocartilage and lunatotriquetral ligament. No carpal bone fracture. Small osteophytes are present at the mildly degenerated first carpometacarpal joint. XR/XR wrist RT min 3V IMPRESSION: There appears to be an mild healing response at the site of comminuted intra-articular fracture distal radius with loss of radial length and abnormal dorsal tilt of the articular surface. The radial deformity is not significantly changed compared to 12/25/2020.
== END 2021-01-15 07:25 | disposition home or self-care (01) ==
LOC: HO.HOSX 07:24
PROVIDERS: Visit Provider Physician Assistant
DX: S52.501D Unspecified fracture of the lower end of right radius, subsequent encounter for closed fracture with routine healing (principal)
CPT/HCPCS: 73110; 99212

== ENCOUNTER 2021-02-19 07:15 | Outpatient (REF) | payer MEDICARE, SELFPAY ==
--- NOTE | ~2021-02-19 | XR_ITS ---
EXAMINATION: XR WRIST, RIGHT CLINICAL INFORMATION: Pain in unspecified hand. COMPARISON: XR right wrist 01/15/2021. TECHNIQUE: PA, lateral, and oblique views of the right wrist. FINDINGS: There has been further internal callus formation of the distal radial fracture with a much less conspicuous fracture line. The dorsal tilt of the distal radial articular surface is again noted. Chondrocalcinosis in the radiocarpal compartment and the second MCP joint are again noted. Diffuse osteopenia is again noted. There are no other interval changes. XR/XR wrist RT min 3V IMPRESSION: Interval healing, particularly internal callus, involving the distal radial fracture.
== END 2021-02-19 07:16 | disposition home or self-care (01) ==
LOC: HO.HOSX 07:15
PROVIDERS: Visit Provider Physician Assistant
DX: S52.501D Unspecified fracture of the lower end of right radius, subsequent encounter for closed fracture with routine healing (principal)
CPT/HCPCS: 73110; 99212

== ENCOUNTER 2021-04-29 08:11 | Outpatient (REF) | payer MEDICARE, SELFPAY ==
[2021-04-29 08:33] LABS: MANUAL DIFF FLAG NO
[2021-04-29 09:05] LABS: Basophils Percent Auto 0.4 % (0-2); Eosinophils Absolute Auto 0.1 X10*3/uL (0.0-0.4); Hematocrit 41.7 % (37.0-47.0); Hemoglobin 13.5 g/dl (12.0-16.0); Imm Gran Abs Auto 0.06 X10*3/uL (0.00-0.03); Imm Gran Pct Auto 0.9 % (0.0-0.4); Lymphocytes Absolute Auto 2.4 X10*3/uL (1.2-4.9); Mean Corpuscular HGB Conc 32.4 g/dl (31.0-35.0); Mean Corpuscular Hemoglobin 30.8 pg (27.0-33.0); Mean Platelet Volume 10.9 fL (9.4-12.3); Monocytes Absolute Auto 0.6 X10*3/uL (0.1-1.2); Monocytes Percent Auto 7.9 % (2-11); Neutrophils Absolute Auto 3.8 x10*3/uL (2.0-8.3); Neutrophils Percent Auto 54.8 % (45-73); Platelet Count 196 X10*3/uL (160-400); Red Blood Count 4.39 X10*6/uL (4.20-5.50); Red Cell Distribution Width 12.6 % (11.0-16.0)
[2021-04-29 09:34] LABS: Alanine Aminotransferase 9 U/L (0-31); Albumin Level 4.5 g/dL (3.5-5.0); Alkaline Phosphatase 86 U/L (39-117); Anion Gap 12 (12-20); Aspartate Amino Transferase 17 U/L (5-31); Bilirubin Total 0.4 mg/dL (0.0-1.0); Blood Urea Nitrogen 19 mg/dL (9-16); Carbon Dioxide 28 mmol/L (22-29); Chloride 105 mmol/L (96-108); Cholesterol 206 mg/dL; Estimated Glomerular Filt Rate 51; Glucose Fasting 92 mg/dL (60-99); HDL Cholesterol 65 mg/dL; LDL Cholesterol Calculated 125 mg/dl; Potassium 4.9 mmol/L (3.3-5.1); Sodium 140 mmol/L (135-145); Triglycerides 84 mg/dL
[2021-04-29 09:55] LABS: Free T4 (Free Thyroxine) 1.03 ng/dL (0.71-1.85); Thyroid Stimulating Hormone 1.95 uIU/mL (0.32-4.0); Vitamin D 25-OH Total 40.8 ng/mL (>30)
== END 2021-04-29 08:12 | disposition home or self-care (01) ==
LOC: HO.LAB 08:11
PROVIDERS: PCP Internal Medicine; Visit Provider Internal Medicine
DX: I10 Essential (primary) hypertension (principal); E03.9 Hypothyroidism, unspecified; M19.90 Unspecified osteoarthritis, unspecified site; M81.0 Age-related osteoporosis without current pathological fracture
CPT/HCPCS: 36415; 80053; 80061; 82306; 84439; 84443; 85025

== ENCOUNTER 2021-05-07 08:12 | Outpatient (REF) | payer MEDICARE, SELFPAY ==
--- NOTE | ~2021-05-07 | MM_ITS ---
EXAMINATION: BONE DENSITOMETRY CLINICAL INDICATION: Encounter for screening for osteoporosis. COMPARISON: None (current study represents initial baseline exam). TECHNIQUE: Using a [employer] DXA System (software version: 13.1) manufactured by [employer], dual-energy x-ray absorptiometry was performed of the lumbar spine and left hip. The images are of good technical quality. Summary results are attached. FINDINGS: AP SPINE L1-L4: BMD 0.870 g/cm2, Z-score -0.6, T-score -2.6, osteoporosis. LEFT FEMUR, NECK: BMD 0.683 g/cm2, Z-score -0.1, T-score -2.6, osteoporosis. LEFT FEMUR, TOTAL: BMD 0.757 g/cm2, Z-score 0.4, T-score -2.0, osteopenia. IDENTIFIED RISK FACTORS: Rheumatoid arthritis, osteoporosis, recurrent falls, height loss, secondary osteoporosis, history of fracture (adult), menopause. HISTORY OF FRACTURE: Wrist. MEDICATIONS: Calcium supplements or multivitamin, vitamin D. MM/XR DEXA axial skeleton IMPRESSION: 1. DIAGNOSIS: Osteoporosis based on the lowest T-score value of -2.6 in the femoral neck and lumbar spine applying World Health Organization criteria. 2. 10 10-YEAR FRACTURE RISK PREDICTION, FRAX: According to the guidelines, FRAX calculation should only be performed on patients in the osteopenia bone density category. Therefore, FRAX was not performed on this patient. 3. Treatment Recommendations: NOF guidelines recommend consideration for treatment in postmenopausal women and men age 50 and older presenting with the following: -A hip or vertebral (clinical or morphometric) fracture. -T-score less than or equal to -2.5 at the femoral neck or spine after appropriate evaluation to exclude secondary causes. -Low bone mass at the hip or spine and a 10-year fracture probability by FRAX of greater than or equal to 3% for hip fracture or greater than or equal to 20% for major osteoporotic fracture based on the [place] adapted WHO algorithm. 4. Other Recommendations: All treatment decisions require clinical judgment and consideration of individual patient factors, including patient preferences, comorbidities, previous drug use, risk factors not captured in the FRAX model (e.g. frailty, falls, vitamin D deficiency, increased bone turnover, interval significant decline in bone density) and possible under or overestimation of fracture risk by FRAX. Additional medical evaluation for secondary cause of low bone mineral density may be appropriate. FUTURE SCAN RECOMMENDATION: People with diagnosed cases of osteoporosis or at high risk for fracture should have regular bone mineral density tests. For patients eligible for Medicare, routine testing is allowed once every 2 years. The testing frequency can be increased to one year for patients who have rapidly progressing disease, those who are receiving or discontinuing medical therapy to restore bone mass, or have additional risk factors.
--- NOTE | ~2021-05-07 | MM_ITS ---
EXAMINATION: MM SCREENING DIGITAL BREAST TOMOSYNTHESIS, BILATERAL CLINICAL INFORMATION: Screening. Asymptomatic. Age 86. COMPARISON: Outside mammography: 09/01/2015, 08/26/2014, 12/16/2012 ([place]). TECHNIQUE: Digital breast tomosynthesis is performed in both the craniocaudal and mediolateral oblique views along with computer-aided detection (CAD). Synthesized 2D images are generated from the tomosynthesis. FINDINGS: There are scattered areas of fibroglandular density (ACR BI-RADS breast composition Category b). Parenchymal pattern is similar to prior outside studies. There is scattered nodularity as before with stable dominant oval mass mid 9:00 left breast approximately 1.1 cm. Right breast has smaller dominant nodule slightly decreased in size mid upper outer right breast with some central fatty attenuation. Other smaller size bilateral nodularity are stable to decreased in size. There is no architectural abnormality. No interval new dominant mass. Scattered round and vascular calcifications are again seen. MM/MM tomosynthesis screening BI IMPRESSION: No significant changes from prior outside studies. ASSESSMENT: BI-RADS 2: Benign RECOMMENDATION: Routine annual mammography screening. This patient's information was entered into a reminder system with a target due date for their next mammogram.
== END 2021-05-07 08:13 | disposition home or self-care (01) ==
LOC: HO.MAMMO 08:12
PROVIDERS: PCP Internal Medicine; Visit Provider Internal Medicine
DX: Z12.31 Encounter for screening mammogram for malignant neoplasm of breast (principal); Z13.820 Encounter for screening for osteoporosis; M81.0 Age-related osteoporosis without current pathological fracture; Z78.0 Asymptomatic menopausal state; Z79.899 Other long term (current) drug therapy
CPT/HCPCS: 77063; 77067; 77080

== ENCOUNTER 2021-09-11 10:29 | Outpatient (REF) | payer MEDICARE, SELFPAY ==
[2021-09-11 13:46] LABS: MANUAL DIFF FLAG NO
[2021-09-11 13:51] LABS: Basophils Percent Auto 0.5 % (0-2); Eosinophils Absolute Auto 0.2 X10*3/uL (0.0-0.4); Eosinophils Percent Auto 1.9 % (0-4); Hematocrit 39.7 % (37.0-47.0); Imm Gran Abs Auto 0.05 X10*3/uL (0.00-0.03); Imm Gran Pct Auto 0.6 % (0.0-0.4); Lymphocytes Absolute Auto 2.3 X10*3/uL (1.2-4.9); Mean Corpuscular HGB Conc 32.7 g/dl (31.0-35.0); Mean Corpuscular Hemoglobin 31.4 pg (27.0-33.0); Mean Corpuscular Volume 95.9 fL (80.0-98.0); Mean Platelet Volume 11.2 fL (9.4-12.3); Monocytes Absolute Auto 0.6 X10*3/uL (0.1-1.2); Monocytes Percent Auto 7.7 % (2-11); Neutrophils Absolute Auto 4.7 x10*3/uL (2.0-8.3); Neutrophils Percent Auto 60.3 % (45-73); Platelet Count 202 X10*3/uL (160-400); Red Blood Count 4.14 X10*6/uL (4.20-5.50); Red Cell Distribution Width 12.8 % (11.0-16.0); White Blood Count 7.8 X10*3/uL (4.8-10.8)
[2021-09-11 14:30] LABS: Alanine Aminotransferase 12 U/L (0-31); Albumin Level 4.5 g/dL (3.5-5.0); Alkaline Phosphatase 70 U/L (39-117); Aspartate Amino Transferase 16 U/L (5-31); Bilirubin Total 0.4 mg/dL (0.0-1.0); Blood Urea Nitrogen 26 mg/dL (9-16); Calcium 9.3 mg/dL (8.4-10.2); Estimated Glomerular Filt Rate 45; Glucose Random 87 mg/dL (60-115); Total Protein 6.9 g/dL (6.5-8.0)
[2021-09-11 14:35] LABS: Free T4 (Free Thyroxine) 1.18 ng/dL (0.71-1.85); Thyroid Stimulating Hormone 1.29 uIU/mL (0.32-4.0)
[2021-09-11 14:48] LABS: Anion Gap 12 (12-20); Carbon Dioxide 26 mmol/L (22-29); Chloride 104 mmol/L (96-108); Potassium 4.5 mmol/L (3.3-5.1); Sodium 137 mmol/L (135-145)
== END 2021-09-11 10:30 | disposition home or self-care (01) ==
LOC: HO.10HDL 10:29
PROVIDERS: Visit Provider Internal Medicine
DX: I10 Essential (primary) hypertension (principal); E03.9 Hypothyroidism, unspecified
CPT/HCPCS: 36415; 80053; 84439; 84443; 85025

== ENCOUNTER 2021-12-13 11:40 | Outpatient (REF) | payer MEDICARE, SELFPAY ==
[2021-12-13 13:44] LABS: Anion Gap 16 (12-20); Blood Urea Nitrogen 25 mg/dL (9-16); Calcium 9.6 mg/dL (8.4-10.2); Carbon Dioxide 23 mmol/L (22-29); Chloride 104 mmol/L (96-108); Estimated Glomerular Filt Rate 50; Glucose Random 93 mg/dL (60-115); Potassium 4.5 mmol/L (3.3-5.1); Sodium 138 mmol/L (135-145)
== END 2021-12-13 11:41 | disposition home or self-care (01) ==
LOC: HO.10HDL 11:40
PROVIDERS: Visit Provider Internal Medicine
DX: I12.9 Hypertensive chronic kidney disease with stage 1 through stage 4 chronic kidney disease, or unspecified chronic kidney disease (principal); N18.9 Chronic kidney disease, unspecified
CPT/HCPCS: 36415; 80048

== ENCOUNTER 2022-05-08 15:00 | Outpatient (REF) | payer MEDICARE, SELFPAY ==
--- NOTE | ~2022-05-08 | MM_ITS ---
EXAMINATION: MM SCREENING DIGITAL BREAST TOMOSYNTHESIS, BILATERAL CLINICAL INFORMATION: Screening. Asymptomatic. COMPARISON: Mammography: May 07, 2021 and studies dating back to December 16, 2012 TECHNIQUE: Digital breast tomosynthesis is performed in both the craniocaudal and mediolateral oblique views along with computer-aided detection (CAD). Synthesized 2D images are generated from the tomosynthesis. FINDINGS: There are scattered areas of fibroglandular density (ACR BI-RADS breast composition Category b). There are no new significant masses, abnormal calcifications, or other abnormalities. Stable bilateral circumscribed densities again seen. MM/MM tomosynthesis screening BI IMPRESSION: No significant changes from prior exam. ASSESSMENT: BI-RADS 2: Benign RECOMMENDATION: Routine annual mammography screening. This patient's information was entered into a reminder system with a target due date for their next mammogram.
== END 2022-05-08 15:01 | disposition home or self-care (01) ==
LOC: HO.MAMMO 15:00
PROVIDERS: Visit Provider Internal Medicine
DX: Z12.31 Encounter for screening mammogram for malignant neoplasm of breast (principal)
CPT/HCPCS: 77063; 77067

== ENCOUNTER 2022-05-16 10:22 | Outpatient (REF) | payer MEDICARE, SELFPAY ==
[2022-05-16 11:16] LABS: MANUAL DIFF FLAG NO
[2022-05-16 11:59] LABS: Basophils Absolute Auto 0.1 X10*3/uL (0.0-0.2); Basophils Percent Auto 0.6 % (0-2); Eosinophils Absolute Auto 0.2 X10*3/uL (0.0-0.4); Eosinophils Percent Auto 1.8 % (0-4); Hematocrit 37.7 % (37.0-47.0); Hemoglobin 12.4 g/dl (12.0-16.0); Imm Gran Abs Auto 0.06 X10*3/uL (0.00-0.03); Imm Gran Pct Auto 0.7 % (0.0-0.4); Lymphocytes Absolute Auto 2.4 X10*3/uL (1.2-4.9); Lymphocytes Percent Auto 28.4 % (20-40); Mean Corpuscular HGB Conc 32.9 g/dl (31.0-35.0); Mean Corpuscular Volume 94.3 fL (80.0-98.0); Mean Platelet Volume 11.1 fL (9.4-12.3); Monocytes Absolute Auto 0.6 X10*3/uL (0.1-1.2); Monocytes Percent Auto 6.7 % (2-11); Neutrophils Absolute Auto 5.2 x10*3/uL (2.0-8.3); Neutrophils Percent Auto 61.8 % (45-73); Platelet Count 195 X10*3/uL (160-400); Red Cell Distribution Width 12.6 % (11.0-16.0); White Blood Count 8.3 X10*3/uL (4.8-10.8)
[2022-05-16 13:18] LABS: Alanine Aminotransferase 11 U/L (0-31); Albumin Level 4.4 g/dL (3.5-5.0); Alkaline Phosphatase 82 U/L (39-117); Anion Gap 12 (12-20); Aspartate Amino Transferase 17 U/L (5-31); Bilirubin Total 0.4 mg/dL (0.0-1.0); Blood Urea Nitrogen 24 mg/dL (9-16); Calcium 9.6 mg/dL (8.4-10.2); Carbon Dioxide 26 mmol/L (22-29); Chloride 105 mmol/L (96-108); Estimated Glomerular Filt Rate 51; Glucose Random 88 mg/dL (60-115); Potassium 4.9 mmol/L (3.3-5.1); Sodium 138 mmol/L (135-145); Total Protein 6.7 g/dL (6.5-8.0)
[2022-05-16 13:34] LABS: Free T4 (Free Thyroxine) 1.19 ng/dL (0.71-1.85); Thyroid Stimulating Hormone 0.53 uIU/mL (0.32-4.0)
== END 2022-05-16 10:23 | disposition home or self-care (01) ==
LOC: HO.10HDL 10:22
PROVIDERS: Visit Provider Internal Medicine
DX: I10 Essential (primary) hypertension (principal); E03.9 Hypothyroidism, unspecified
CPT/HCPCS: 36415; 80053; 84439; 84443; 85025

== ENCOUNTER 2022-08-15 10:04 | Outpatient (REF) | payer MEDICARE, SELFPAY ==
[2022-08-15 10:28] LABS: MANUAL DIFF FLAG NO
[2022-08-15 10:56] LABS: Basophils Percent Auto 0.6 % (0-2); Eosinophils Absolute Auto 0.1 X10*3/uL (0.0-0.4); Eosinophils Percent Auto 1.7 % (0-4); Imm Gran Abs Auto 0.06 X10*3/uL (0.00-0.03); Imm Gran Pct Auto 0.9 % (0.0-0.4); Lymphocytes Absolute Auto 1.7 X10*3/uL (1.2-4.9); Lymphocytes Percent Auto 26.7 % (20-40); Mean Corpuscular HGB Conc 32.5 g/dl (31.0-35.0); Mean Corpuscular Hemoglobin 30.7 pg (27.0-33.0); Mean Corpuscular Volume 94.3 fL (80.0-98.0); Mean Platelet Volume 10.7 fL (9.4-12.3); Monocytes Absolute Auto 0.4 X10*3/uL (0.1-1.2); Monocytes Percent Auto 6.5 % (2-11); Neutrophils Absolute Auto 4.1 x10*3/uL (2.0-8.3); Neutrophils Percent Auto 63.6 % (45-73); Platelet Count 205 X10*3/uL (160-400); Red Blood Count 4.24 X10*6/uL (4.20-5.50); Red Cell Distribution Width 12.9 % (11.0-16.0); White Blood Count 6.5 X10*3/uL (4.8-10.8)
[2022-08-15 11:33] LABS: Alanine Aminotransferase 11 U/L (0-31); Albumin Level 4.6 g/dL (3.5-5.0); Alkaline Phosphatase 76 U/L (39-117); Anion Gap 14 (12-20); Aspartate Amino Transferase 16 U/L (5-31); Bilirubin Total 0.4 mg/dL (0.0-1.0); Blood Urea Nitrogen 27 mg/dL (9-16); Calcium 10.1 mg/dL (8.4-10.2); Carbon Dioxide 26 mmol/L (22-29); Chloride 104 mmol/L (96-108); Cholesterol 213 mg/dL; Estimated Glomerular Filt Rate 49; Glucose Random 94 mg/dL (60-115); Potassium 4.7 mmol/L (3.3-5.1); Sodium 139 mmol/L (135-145); Total Protein 7.2 g/dL (6.5-8.0)
[2022-08-15 11:54] LABS: Thyroid Stimulating Hormone 0.56 uIU/mL (0.32-4.0); Vitamin D 25-OH Total 46.1 ng/mL (>30)
== END 2022-08-15 10:05 | disposition home or self-care (01) ==
LOC: HO.LAB 10:04
PROVIDERS: PCP Internal Medicine; Visit Provider Internal Medicine
DX: I12.9 Hypertensive chronic kidney disease with stage 1 through stage 4 chronic kidney disease, or unspecified chronic kidney disease (principal); N18.9 Chronic kidney disease, unspecified; E03.9 Hypothyroidism, unspecified; M81.0 Age-related osteoporosis without current pathological fracture
CPT/HCPCS: 36415; 80053; 82306; 82465; 84439; 84443; 85025

== ENCOUNTER 2022-09-30 13:34 | Outpatient (REF) | payer MEDICARE, SELFPAY ==
[2022-09-30 17:51] LABS: Vitamin B12 324 pg/mL (200-900)
== END 2022-09-30 13:35 | disposition home or self-care (01) ==
LOC: HO.LAB 13:34
PROVIDERS: PCP Internal Medicine; Visit Provider Psychiatry & Neurology Neurology
DX: G30.9 Alzheimer's disease, unspecified (principal)
CPT/HCPCS: 36415; 82607

== ENCOUNTER 2022-11-21 10:49 | Outpatient (REF) | payer MEDICARE, SELFPAY ==
[2022-11-21 13:34] LABS: MANUAL DIFF FLAG NO
[2022-11-21 13:49] LABS: Basophils Percent Auto 0.5 % (0-2); Eosinophils Absolute Auto 0.2 X10*3/uL (0.0-0.4); Eosinophils Percent Auto 1.8 % (0-4); Hematocrit 39.9 % (37.0-47.0); Hemoglobin 13.2 g/dl (12.0-16.0); Imm Gran Abs Auto 0.07 X10*3/uL (0.00-0.03); Imm Gran Pct Auto 0.9 % (0.0-0.4); Lymphocytes Absolute Auto 1.9 X10*3/uL (1.2-4.9); Lymphocytes Percent Auto 22.9 % (20-40); Mean Corpuscular HGB Conc 33.1 g/dl (31.0-35.0); Mean Corpuscular Hemoglobin 30.7 pg (27.0-33.0); Mean Corpuscular Volume 92.8 fL (80.0-98.0); Mean Platelet Volume 11.1 fL (9.4-12.3); Monocytes Absolute Auto 0.7 X10*3/uL (0.1-1.2); Neutrophils Absolute Auto 5.4 x10*3/uL (2.0-8.3); Neutrophils Percent Auto 65.9 % (45-73); Platelet Count 200 X10*3/uL (160-400); Red Cell Distribution Width 12.9 % (11.0-16.0); White Blood Count 8.2 X10*3/uL (4.8-10.8)
[2022-11-21 14:44] LABS: Anion Gap 14 (12-20); Blood Urea Nitrogen 24 mg/dL (9-16); Calcium 10.2 mg/dL (8.4-10.2); Carbon Dioxide 26 mmol/L (22-29); Chloride 103 mmol/L (96-108); Cholesterol 211 mg/dL (<200); Estimated Glomerular Filt Rate 50; Free T4 (Free Thyroxine) 1.14 ng/dL (0.71-1.85); Glucose Random 83 mg/dL (60-115); Potassium 4.6 mmol/L (3.3-5.1); Sodium 138 mmol/L (135-145); Thyroid Stimulating Hormone 0.55 uIU/mL (0.32-4.0)
== END 2022-11-21 10:50 | disposition home or self-care (01) ==
LOC: HO.10HDL 10:49
PROVIDERS: Visit Provider Internal Medicine
DX: I10 Essential (primary) hypertension (principal); E03.9 Hypothyroidism, unspecified
CPT/HCPCS: 36415; 80048; 82465; 84439; 84443; 85025

== ENCOUNTER 2023-02-27 10:16 | Outpatient (REF) | payer MEDICARE, SELFPAY ==
[2023-02-27 10:33] LABS: MANUAL DIFF FLAG NO
[2023-02-27 10:37] LABS: Basophils Absolute Auto 0.1 X10*3/uL (0.0-0.2); Basophils Percent Auto 0.6 % (0-2); Eosinophils Absolute Auto 0.1 X10*3/uL (0.0-0.4); Eosinophils Percent Auto 1.1 % (0-4); Hemoglobin 13.2 g/dl (12.0-16.0); Imm Gran Abs Auto 0.07 X10*3/uL (0.00-0.03); Imm Gran Pct Auto 0.8 % (0.0-0.4); Lymphocytes Absolute Auto 1.7 X10*3/uL (1.2-4.9); Lymphocytes Percent Auto 19.2 % (20-40); Mean Corpuscular Hemoglobin 31.4 pg (27.0-33.0); Mean Corpuscular Volume 95.2 fL (80.0-98.0); Mean Platelet Volume 10.4 fL (9.4-12.3); Monocytes Absolute Auto 0.6 X10*3/uL (0.1-1.2); Monocytes Percent Auto 6.3 % (2-11); Neutrophils Absolute Auto 6.4 x10*3/uL (2.0-8.3); Platelet Count 187 X10*3/uL (160-400); Red Cell Distribution Width 12.6 % (11.0-16.0); White Blood Count 8.9 X10*3/uL (4.8-10.8)
[2023-02-27 11:30] LABS: Anion Gap 14 (12-20); Blood Urea Nitrogen 27 mg/dL (9-16); Calcium 9.8 mg/dL (8.4-10.2); Carbon Dioxide 25 mmol/L (22-29); Chloride 105 mmol/L (96-108); Estimated Glomerular Filt Rate 52; Glucose Random 92 mg/dL (60-115); Potassium 4.5 mmol/L (3.3-5.1); Sodium 139 mmol/L (135-145)
[2023-02-27 11:48] LABS: Free T4 (Free Thyroxine) 1.18 ng/dL (0.71-1.85); Thyroid Stimulating Hormone 0.99 uIU/mL (0.32-4.0)
== END 2023-02-27 10:17 | disposition home or self-care (01) ==
LOC: HO.10HDL 10:16
PROVIDERS: Visit Provider Internal Medicine
DX: I12.9 Hypertensive chronic kidney disease with stage 1 through stage 4 chronic kidney disease, or unspecified chronic kidney disease (principal); N18.9 Chronic kidney disease, unspecified; E03.9 Hypothyroidism, unspecified
CPT/HCPCS: 36415; 80048; 84439; 84443; 85025

== ENCOUNTER 2023-05-15 14:55 | Outpatient (REF) | payer MEDICARE, SELFPAY ==
--- NOTE | ~2023-05-15 | MM_ITS ---
EXAMINATION: MM SCREENING DIGITAL BREAST TOMOSYNTHESIS, BILATERAL CLINICAL INFORMATION: Screening. Asymptomatic. COMPARISON: Mammography: This study is compared with prior exams dating back to 2016. TECHNIQUE: Digital breast tomosynthesis is performed in both the craniocaudal and mediolateral oblique views along with computer-aided detection (CAD). Synthesized 2D images are generated from the tomosynthesis. FINDINGS: There are scattered areas of fibroglandular density (ACR BI-RADS breast composition Category b). There are no significant masses, abnormal calcifications, or other abnormalities. MM/MM tomosynthesis screening BI IMPRESSION: No mammographic evidence of malignancy. ASSESSMENT: BI-RADS BI-RADS 1 - Negative RECOMMENDATION: Routine annual mammography screening. 1 year F/U This examination should not preclude the clinical evaluation of a suspicious palpable abnormality. This patient's information was entered into a reminder system with a target due date for their next mammogram.
== END 2023-05-15 14:56 | disposition home or self-care (01) ==
LOC: HO.MAMMO 14:55
PROVIDERS: PCP Internal Medicine; Visit Provider Internal Medicine
DX: Z12.31 Encounter for screening mammogram for malignant neoplasm of breast (principal)
CPT/HCPCS: 77063; 77067

== ENCOUNTER → 2023-05-15 15:15 | Outpatient (BNV) | payer MEDICARE, SELFPAY | PROVIDERS: PCP Internal Medicine; Visit Provider Radiology Diagnostic Radiology | DX: Z12.31 Encounter for screening mammogram for malignant neoplasm of breast (principal) | CPT/HCPCS: 77063; 77067 ==

== ENCOUNTER 2023-07-03 10:51 | Outpatient (REF) | payer MEDICARE, SELFPAY ==
--- NOTE | ~2023-07-03 | XR_ITS ---
EXAMINATION: XR DORSAL SPINE XR LUMBOSACRAL SPINE CLINICAL INFORMATION: Back pain. COMPARISON: X-ray of the dorsal spine February 2020. TECHNIQUE: 3 views of the dorsal spine and 3 views of the lumbosacral spine. FINDINGS: Dorsal spine: Vertebral bodies are normally aligned with normal height. Multilevel spondylosis manifested by endplate osteophytes and multiple disc spaces demonstrating a mild disc space narrowing indicative of mild degenerative disc disease. This is unchanged. There is no fracture or bone lesion. Surrounding soft tissues are normal other than calcification of the dorsal aorta. Incidental note made of spondylosis of the partially visualized cervical spine with multilevel degenerative disc disease noted. Lumbosacral spine: Vertebral bodies normal in height with mild grade 1 anterolisthesis of L4 on L5. Mild degenerative disc change present at the L1-L2 and L2-L3 levels manifested by endplate osteophytes without disc space narrowing. There is facet arthrosis noted from L3-L4 through L5-S1. This degenerative change likely results in the anterolisthesis at L4-L5. The partially visualized pelvis is unremarkable. There is arterial calcification of the abdominal aorta. XR/XR lumbar spine 2-3V IMPRESSION: 1. No acute abnormality. 2. Spondylosis of the dorsal spine. 3. No significant change compared with February 2020 x-ray series. 4. Spondylosis of the lumbosacral spine.
--- NOTE | ~2023-07-03 | XR_ITS ---
EXAMINATION: XR DORSAL SPINE XR LUMBOSACRAL SPINE CLINICAL INFORMATION: Back pain. COMPARISON: X-ray of the dorsal spine February 2020. TECHNIQUE: 3 views of the dorsal spine and 3 views of the lumbosacral spine. FINDINGS: Dorsal spine: Vertebral bodies are normally aligned with normal height. Multilevel spondylosis manifested by endplate osteophytes and multiple disc spaces demonstrating a mild disc space narrowing indicative of mild degenerative disc disease. This is unchanged. There is no fracture or bone lesion. Surrounding soft tissues are normal other than calcification of the dorsal aorta. Incidental note made of spondylosis of the partially visualized cervical spine with multilevel degenerative disc disease noted. Lumbosacral spine: Vertebral bodies normal in height with mild grade 1 anterolisthesis of L4 on L5. Mild degenerative disc change present at the L1-L2 and L2-L3 levels manifested by endplate osteophytes without disc space narrowing. There is facet arthrosis noted from L3-L4 through L5-S1. This degenerative change likely results in the anterolisthesis at L4-L5. The partially visualized pelvis is unremarkable. There is arterial calcification of the abdominal aorta. XR/XR thoracic spine 2V IMPRESSION: 1. No acute abnormality. 2. Spondylosis of the dorsal spine. 3. No significant change compared with February 2020 x-ray series. 4. Spondylosis of the lumbosacral spine.
[2023-07-03 11:09] LABS: MANUAL DIFF FLAG NO
[2023-07-03 11:54] LABS: Basophils Percent Auto 0.5 % (0-2); Eosinophils Absolute Auto 0.1 X10*3/uL (0.0-0.4); Eosinophils Percent Auto 1.5 % (0-4); Hematocrit 38.4 % (37.0-47.0); Hemoglobin 12.6 g/dl (12.0-16.0); Imm Gran Abs Auto 0.11 X10*3/uL (0.00-0.03); Imm Gran Pct Auto 1.2 % (0.0-0.4); Lymphocytes Absolute Auto 2.2 X10*3/uL (1.2-4.9); Lymphocytes Percent Auto 24.9 % (20-40); Mean Corpuscular HGB Conc 32.8 g/dl (31.0-35.0); Mean Corpuscular Hemoglobin 31.2 pg (27.0-33.0); Mean Platelet Volume 10.8 fL (9.4-12.3); Monocytes Absolute Auto 0.6 X10*3/uL (0.1-1.2); Monocytes Percent Auto 7.2 % (2-11); Neutrophils Absolute Auto 5.7 x10*3/uL (2.0-8.3); Neutrophils Percent Auto 64.7 % (45-73); Platelet Count 192 X10*3/uL (160-400); Red Blood Count 4.04 X10*6/uL (4.20-5.50); Red Cell Distribution Width 13.1 % (11.0-16.0); White Blood Count 8.9 X10*3/uL (4.8-10.8)
[2023-07-03 12:46] LABS: Alanine Aminotransferase 14 U/L (0-31); Albumin Level 4.4 g/dL (3.5-5.0); Alkaline Phosphatase 95 U/L (39-117); Anion Gap 14 (12-20); Aspartate Amino Transferase 17 U/L (5-31); Bilirubin Total 0.3 mg/dL (0.0-1.0); Blood Urea Nitrogen 33 mg/dL (9-16); Calcium 9.4 mg/dL (8.4-10.2); Carbon Dioxide 25 mmol/L (22-29); Chloride 104 mmol/L (96-108); Estimated Glomerular Filt Rate 51; Glucose Random 88 mg/dL (60-115); Potassium 4.5 mmol/L (3.3-5.1); Sodium 138 mmol/L (135-145); Total Protein 7.2 g/dL (6.5-8.0)
[2023-07-03 12:53] LABS: Free T4 (Free Thyroxine) 1.19 ng/dL (0.71-1.85); Thyroid Stimulating Hormone 0.84 uIU/mL (0.32-4.0)
== END 2023-07-03 10:52 | disposition home or self-care (01) ==
LOC: HO.XRAY 10:51
PROVIDERS: PCP Internal Medicine; Visit Provider Internal Medicine
DX: I10 Essential (primary) hypertension (principal); E03.9 Hypothyroidism, unspecified; M54.9 Dorsalgia, unspecified; M81.0 Age-related osteoporosis without current pathological fracture
CPT/HCPCS: 36415; 72070; 72100; 80053; 84439; 84443; 85025

== ENCOUNTER 2024-01-29 14:04 | Outpatient (REF) | payer OTHER, SELFPAY ==
[2024-01-29 14:51] LABS: MANUAL DIFF FLAG NO
[2024-01-29 15:22] LABS: Basophils Percent Auto 0.4 % (0-2); Eosinophils Absolute Auto 0.1 X10*3/uL (0.0-0.4); Eosinophils Percent Auto 1.6 % (0-4); Hematocrit 37.3 % (37.0-47.0); Hemoglobin 12.5 g/dl (12.0-16.0); Imm Gran Abs Auto 0.05 X10*3/uL (0.00-0.03); Imm Gran Pct Auto 0.6 % (0.0-0.4); Lymphocytes Absolute Auto 2.5 X10*3/uL (1.2-4.9); Lymphocytes Percent Auto 30.2 % (20-40); Mean Corpuscular HGB Conc 33.5 g/dl (31.0-35.0); Mean Corpuscular Hemoglobin 31.5 pg (27.0-33.0); Mean Platelet Volume 10.7 fL (9.4-12.3); Monocytes Absolute Auto 0.6 X10*3/uL (0.1-1.2); Monocytes Percent Auto 6.7 % (2-11); Neutrophils Absolute Auto 5.1 x10*3/uL (2.0-8.3); Neutrophils Percent Auto 60.5 % (45-73); Platelet Count 196 X10*3/uL (160-400); Red Blood Count 3.97 X10*6/uL (4.20-5.50); Red Cell Distribution Width 12.5 % (11.0-16.0); White Blood Count 8.3 X10*3/uL (4.8-10.8)
[2024-01-29 16:12] LABS: Alanine Aminotransferase 15 U/L (0-31); Albumin Level 4.3 g/dL (3.5-5.0); Alkaline Phosphatase 88 U/L (39-117); Anion Gap 10 (12-20); Aspartate Amino Transferase 18 U/L (5-31); Bilirubin Total 0.2 mg/dL (0.0-1.0); Blood Urea Nitrogen 21 mg/dL (9-16); Calcium 9.9 mg/dL (8.4-10.2); Carbon Dioxide 28 mmol/L (22-29); Chloride 104 mmol/L (96-108); Cholesterol 203 mg/dL (<200); Estimated Glomerular Filt Rate 42; Glucose Random 99 mg/dL (60-115); Potassium 4.4 mmol/L (3.3-5.1); Sodium 138 mmol/L (135-145); Total Protein 6.8 g/dL (6.5-8.0)
[2024-01-29 16:31] LABS: Free T4 (Free Thyroxine) 1.28 ng/dL (0.71-1.85); Thyroid Stimulating Hormone 0.47 uIU/mL (0.32-4.0); Vitamin D 25-OH Total 36.8 ng/mL (>30)
== END 2024-01-29 14:05 | disposition home or self-care (01) ==
LOC: HO.LAB 14:04
PROVIDERS: PCP Internal Medicine; Visit Provider Internal Medicine
DX: I12.9 Hypertensive chronic kidney disease with stage 1 through stage 4 chronic kidney disease, or unspecified chronic kidney disease (principal); N18.9 Chronic kidney disease, unspecified; E03.9 Hypothyroidism, unspecified
CPT/HCPCS: 36415; 80053; 82306; 82465; 84439; 84443; 85025

== ENCOUNTER 2024-02-25 12:50 | Outpatient (REF) | payer OTHER, SELFPAY ==
[2024-02-25 14:25] LABS: Appearance Urine Cloudy; Color Urine Yellow; Glucose Urine UA Negative (Negative); Leukocyte Esterase Urine Small (1+) (Negative); Nitrite Urine Negative (Negative); Specific Gravity - Urine 1.015 (1.005-1.025); UMIC TRIGGER UACC YES; Urine Blood Negative (Negative); Urine Ketones Negative (Negative); Urine Protein Negative (Neg-Trace)
[2024-02-25 14:31] LABS: Alanine Aminotransferase 14 U/L (0-31); Albumin Level 4.4 g/dL (3.5-5.0); Alkaline Phosphatase 74 U/L (39-117); Anion Gap 11 (12-20); Aspartate Amino Transferase 20 U/L (5-31); Bilirubin Total 0.4 mg/dL (0.0-1.0); Blood Urea Nitrogen 26 mg/dL (9-16); Calcium 9.7 mg/dL (8.4-10.2); Carbon Dioxide 28 mmol/L (22-29); Chloride 107 mmol/L (96-108); Estimated Glomerular Filt Rate 48; Glucose Random 133 mg/dL (60-115); Potassium 4.5 mmol/L (3.3-5.1); Sodium 141 mmol/L (135-145); Total Protein 7.3 g/dL (6.5-8.0)
[2024-02-25 14:36] LABS: Bacteria Urine None Seen (None Seen); Hyaline Casts Urine 0-2 /LPF (0-2); RBC Urine 0-2 /HPF (0-2); Squamous Epithelial Cell Urine 0-2 /HPF (0-2); UACC Culture Trigger YES; WBC Urine 0-5 /HPF (0-5)
== END 2024-02-25 12:51 | disposition home or self-care (01) ==
LOC: HO.LAB 12:50
PROVIDERS: PCP Internal Medicine; Visit Provider Internal Medicine
DX: R30.0 Dysuria (principal)
CPT/HCPCS: 36415; 80053; 81001; 87086

== ENCOUNTER 2024-05-20 13:22 | Outpatient (AMB) | payer OTHER, SELFPAY ==
--- NOTE | 2024-05-20 13:34 | A.OFFPC_ITS ---
Vital Signs 05/20/24 13:42 Height 5 ft Weight 137 lb BMI 26.8 BP 124/82 Respiration 16 Pulse 72 Pulse Source Pulse Oximeter Temp 97.6 F Temp Source Temporal Artery Scan Pulse Oximetry (%) 99 Oxygen Delivery Method Room Air Intake Visit Reasons: Routine Matcher Required: No Accompanied by: Daughter Allergies alendronate sodium [ALENDRONATE SODIUM] Allergy (Unknown, Verified 05/20/24 13:34) UNKNOWN oxycodone [From OXYCONTIN] Allergy (Unknown, Verified 05/20/24 13:34) NAUSEA & VOMITING, vomiting Medication List - Last Reconciled 05/20/24 by Pebbles Lua MD acetaminophen 650 mg (2 x 325 mg) PO Q6H PRN enalapril maleate 1.5 tabs PO DAILY levothyroxine 1 tab PO DAILY lidocaine 5% (Lidoderm) 1 patch topical DAILY quetiapine (Seroquel) 12.5 mg (1/2 x 25 mg) PO BID PRN 90 days sertraline 50 mg PO DAILY Tobacco use date assessed: 05/20/24 Fall risk assessment: 2 + Falls in past year Last assessed Fall Risk: 05/20/24 Dental Screening Dental Screen Date: 05/20/24 Did you have a dental visit in the last 12 months?: No Did you have a dental problem in the last 6 months where you did not have access to dental care?: No HPI HPI Comments History of Present Illness Details The patient is an 89 year old female with a past medical history of hypertension, osteoporosis, hypothyroid, depression presenting for Endocrine: Hypothyroid on levothyroxine CV: on enalapril. BP controlled BH: On sertraline. Generally okay but sometimes when gets agitated it stresses her out and she starts forgetting things more and becomes confused. Sleeping ok MSK: Right shoulder pain, left facial pain-mild residual from fall ROS CONSTITUTIONAL: Denies weight loss, fever and chills. HEENT: Denies changes in vision and hearing. RESPIRATORY: Denies SOB and cough. CV: Denies palpitations and CP GI: Denies abdominal pain, nausea, vomiting and diarrhea. : Denies dysuria and urinary frequency. MSK: Denies new myalgia and joint pain. SKIN: Denies rash and pruritus. NEUROLOGICAL: Denies headache PSYCHIATRIC: Denies recent changes in mood. PHYSICAL EXAM: GENERAL: Alert and oriented x 3. NAD EYES: EOMI. Anicteric. HENT: Moist mucous membranes. No scleral icterus. No cervical lymphadenopathy. LUNGS: Clear to auscultation bilaterally. CARDIOVASCULAR: Regular rate and rhythm. No murmur. No JVD. ABDOMEN: Soft, non-tender +bs EXTREMITIES: No edema. Non-tender. SKIN: No rashes or lesions. Warm. NEUROLOGIC: No focal neurological deficits. CN II-XII grossly intact PSYCHIATRIC: Cooperative. Appropriate mood and affect [facility] Medical History Hypertension Hypothyroid Family History Father Heart problem Mother No problems noted. Social History Housing: Apartment Alcohol intake: never Patient Tobacco Use Status: Never used Tobacco service: No Current occupational status: retired Current occupation: rt handed Cognitive needs: Yes (cane) Hearing needs: No Vision needs: No Questionnaire PHQ-9 Over the last 2 weeks, how often have you been bothered by any of the following problems? 1. Little interest or pleasure in doing things: not at all 2. Feeling down, depressed, or hopeless: not at all 3. Trouble falling or staying asleep, or sleeping too much: not at all 4. Feeling tired or having little energy: not at all 5. Poor appetite or overeating: not at all 6. Feeling bad about yourself - or that you are a failure or have let yourself or your family down: not at all 7. Trouble concentrating on things, such as reading the newspaper or watching television: not at all 8. Moving or speaking so slowly that other people could have noticed. Or the opposite - being so fidgety or restless that you have been moving around a lot more than usual: not at all 9. Thoughts that you would be better off or of hurting yourself in some way: not at all Total score: 0 Depression Screening Interpretation: Negative Depression Screening Done: Yes 69322 - PHQ-9 Billing: Yes Source: Developed by Drs. Mathew L. Shandra Marie Kurt Kroenke and colleagues, with an educational nat from [employer]. Thrive Questionnaire Date Thrive assessed: 05/20/24 I am a: Patient What is your living situation today?: I have a steady place to live Within the past 12 months, did the food you bought not last and you didn't have the money to get more?: Never true Within the past 12 months, did you worry whether your food would run out before you got money to buy more?: Never true Do you have trouble paying for medicines?: No Do you have trouble getting transportation to medical appointments?: No Do you have trouble paying your heating and electricity bill?: No Do you have trouble taking care of your child, family member or friend?: No Do you have trouble with day-to-day activities such as bathing, preparing meals, shopping, managing finances, etc.?: No Are you currently unemployed and looking for a job?: No Are you interested in more education?: No Please select the resources that you would like help with: None THRIVE Score: 0 AUDIT C Alcohol Use Questionnaire (AUDIT-C) 1. How often do you have a drink containing alcohol?: Monthly or less 2. How many drinks containing alcohol do you have on a typical day when you are drinking?: 1 or 2 3. How often do you have six or more drinks on one occasion?: Never Total Score: 1 NINA-7 AMB Questionnaire NINA-7 Date NINA - 7 assessed: 05/20/24 Feeling nervous, anxious, or on edge: 0 = Not at all Not being able to stop or control worryin = Not at all Worrying too much about different things: 0 = Not at all Trouble relaxin = Not at all Being so restless that it is hard to sit still: 0 = Not at all Becoming easily annoyed or irritable: 0 = Not at all Feeling afraid as if something awful might happen: 0 = Not at all Total NINA-7 score (0-4 normal; 5-9 mild; 10-14 moderate; 15-21 severe): 0 Source: Developed by Shandra Cohen Kurt Kroenke and colleagues, with an educational nat from [employer]. Physical exam (Primary Care) Vital Signs: Last Vital Signs Temp 97.6 F 05/20/24 13:42 Resp 16 05/20/24 13:42 Tobacco/Smoking Status: Tobacco use Status Tobacco use date assessed 05/20/24 05/20/24 13:36 Patient Tobacco Use Status Never used Tobacco 05/20/24 13:38 PHQ-9: PHQ-9 Score PHQ-9: Total score 0 05/20/24 13:38 Depression Screening Interpretation: Negative Thrive Assessment: Date of Thrive Assessment Date Thrive assessed 05/20/24 05/20/24 13:38 Coding Level of Care Code Est Pt Level 4 (90415) Complex EM visit Add On G2211 Diagnoses Primary hypertension I10 Hypertension type: primary hypertension Hypothyroidism, unspecified type E03.9 Hypothyroidism type: unspecified Anxiety F41.9 Additional Codes PHQ-9 - 55971 - PHQ-9 Billing: Yes ([id number]) Assessment & Plan Assessment & Plan (1) Hypertension: Code(s): I10 - Essential (primary) hypertension Category: Medical Qualifiers: Hypertension type: primary hypertension Qualified Code(s): I10 - Essential (primary) hypertension Plan: controlled on current medications (2) Hypothyroid: Code(s): E03.9 - Hypothyroidism, unspecified Category: Medical Qualifiers: Hypothyroidism type: unspecified Qualified Code(s): E03.9 - Hypothyroidism, unspecified Plan: clinically and biochemically euthyroid (3) Anxiety: Code(s): F41.9 - Anxiety disorder, unspecified Category: Medical Plan: Continue sertraline Start prn seroquel Orders: Orders Complete Blood Count Auto Diff Today E03.9 - Hypothyroidism, unspecified, I10 - Essential (primary) hypertension Comprehensive Met. Panel Today E03.9 - Hypothyroidism, unspecified, I10 - Essential (primary) hypertension Vitamin B12 and Folate Today E03.9 - Hypothyroidism, unspecified, I10 - Essential (primary) hypertension TSH reflex Free T4 Today E03.9 - Hypothyroidism, unspecified, I10 - Essential (primary) hypertension Medications: New quetiapine (Seroquel) 12.5 mg (1/2 x 25 mg) PO BID 90 days PRN 90 tabs 1RF agitation
[2024-05-20 13:42] VITALS: BP 124/82; PULSE 72; RESP 16; TEMP 36.4; O2SAT 99; BMI 26.8
== END 2024-05-20 14:07 | disposition home or self-care (01) ==
LOC: HO.HMCHD 13:22
PROVIDERS: PCP Internal Medicine; Visit Provider Internal Medicine
DX: I10 Essential (primary) hypertension (principal); E03.9 Hypothyroidism, unspecified; F41.9 Anxiety disorder, unspecified

== ENCOUNTER → 2024-05-20 13:22 | Outpatient (BNVA) | payer OTHER, SELFPAY | PROVIDERS: PCP Internal Medicine; Visit Provider Internal Medicine | DX: I10 Essential (primary) hypertension (principal); M81.0 Age-related osteoporosis without current pathological fracture; E03.9 Hypothyroidism, unspecified; F32.A Depression, unspecified | CPT/HCPCS: 96127 ==

== ENCOUNTER 2024-07-16 17:20 | Emergency (ER) | payer MEDICARE, SELFPAY ==
--- NOTE | ~2024-07-16 | XR_ITS ---
CLINICAL HISTORY: syncope --- Additional Notes or Special Instructions: collared ([id number] Single view of the chest. COMPARISON: None FINDINGS: Normal heart size. Atherosclerotic thoracic aorta. No consolidation. No pleural effusion or pneumothorax. Mild spondylosis. No fracture identified. IMPRESSION: 1. No consolidation. This document has been electronically signed by: Jace De Jesus MD on 07/16/2024 20:55:15
--- NOTE | ~2024-07-16 | CT_ITS ---
CLINICAL HISTORY: trauma syncope CT head without contrast COMPARISON: None FINDINGS: Global cerebral volume loss and chronic microvascular ischemic changes. No acute intracranial hemorrhage, extra-axial fluid collection, mass effect, or midline shift. Ventricular system and basilar cisterns are patent. Song-white matter differentiation is maintained. No gross orbital abnormality. No suspicious or acute bone lesion. Mastoid air cells and paranasal sinuses are predominantly clear. IMPRESSION: 1. No acute intracranial abnormality. 2. Global cerebral volume loss and chronic microvascular ischemic changes. This document has been electronically signed by: Salomon Olson MD on 07/16/2024 19:45:22
--- NOTE | ~2024-07-16 | CT_ITS ---
CLINICAL HISTORY: pain, divertic? CT abdomen and pelvis with contrast Comparison: None Findings: No acute finding in the lung bases. Mild gallbladder distention with gallbladder wall thickening and hyperenhancement at the fundus. Trace amount of pericholecystic fat stranding noted. No biliary ductal dilatation. Normal liver, spleen, pancreas, and adrenal glands. Unremarkable kidneys, ureters, and urinary bladder. Severe sigmoid diverticulosis. Mild wall thickening of the distal descending colon extending into the proximal sigmoid colon. Minimal fat stranding adjacent to the sigmoid colon in multiple locations is suspicious for low-grade chronic smoldering diverticulitis. Small bowel and appendix are normal. No significant abnormality of the stomach. No aortic aneurysm. Heavy atherosclerotic changes of the aorta. No acute fracture or suspicious bone lesion. IMPRESSION: 1. Mild gallbladder distention with mild wall thickening of the gallbladder fundus with a trace amount of pericholecystic fluid. Correlate for cholecystitis. 2. Severe sigmoid diverticulosis with findings suggestive of mild colitis involving the distal descending colon and sigmoid colon which may represent a low-grade chronic diverticulitis or infectious colitis. This document has been electronically signed by: Salomon Olson MD on 07/16/2024 19:44:13
--- NOTE | ~2024-07-16 | CT_ITS ---
CLINICAL HISTORY: trauma syncope CT cervical spine without contrast Comparison: None Findings: Vertebral alignment is within normal limits. Severe multilevel multifactorial degenerative changes. No acute fractures or dislocations. No acute findings on limited view of the intracranial contents. Soft tissues of the neck are normal. No consolidation or effusion at the lung apices. IMPRESSION: No acute findings. This document has been electronically signed by: Salomon Olson MD on 07/16/2024 19:45:22
--- NOTE | 2024-07-16 17:22 | ECG_ITS ---
Test Reason : SYNCOPE Blood Pressure : */* mmHG Vent. Rate : 74 BPM Atrial Rate : 74 BPM P-R Int : 160 ms QRS Dur : 124 ms QT Int : 422 ms P-R-T Axes : * 137 96 degrees QTcB Int : 468 ms Normal sinus rhythm Right bundle branch block Abnormal ECG When compared with ECG of 13-Feb-2020 13:09, Right bundle branch block is now Present Referred By: Viola Paez Electronically Signed By: SAMMY ROCK
[2024-07-16 17:27] VITALS: BP 114/75; PULSE 81; O2SAT 98
[2024-07-16 17:43] VITALS: BP 121/50; PULSE 70; RESP 15; TEMP 36.4; O2SAT 100; BMI 25.0
[2024-07-16 17:46] VITALS: PULSE 71
--- NOTE | 2024-07-16 17:46 | ED.GENADULT ---
HPI - General Adult General Chief complaint: Syncope Stated complaint: syncopal episode Time Seen by Provider: 07/16/24 17:22 Source: patient Limitations: language barrier History of Present Illness ED Provider: Viola Paez PA-C HPI narrative: 89-year-old female with a history of anxiety, hypothyroidism, hypertension, prior TIA, who presents after syncopal episode at home. Patient states she developed abdominal pain over the past day. Pain over lower abdomen, unable to describe the nature of her discomfort. Associated nausea vomiting diarrhea. No sick contacts with similar symptoms. Denies use of recent antibiotics, hospitalization or travel. No fevers. Patient was in the bathroom, she became dizzy and lightheaded, she subsequently passed out, landing on the bathroom floor. The fall was unwitnessed, she is not sure if she struck her head, however she is endorsing some mild generalized neck discomfort. The patient does not use a blood thinner. Related Data Home Medications ?Medication ?Instructions ?Recorded ?Confirmed enalapril maleate 20 mg tablet 1.5 tab PO DAILY 12/23/19 12/23/19 levothyroxine 100 mcg tablet 1 tab PO DAILY 12/23/19 12/23/19 sertraline 50 mg tablet 50 mg PO DAILY 05/20/24 Previous Rx's ?Medication ?Instructions ?Recorded acetaminophen 325 mg capsule 650 mg (2 x 325 mg) PO Q6H PRN 02/13/20 fever or pain #20 caps lidocaine 5 % topical patch 1 patch topical DAILY #15 ea 02/13/20 (Lidoderm) quetiapine 25 mg tablet (Seroquel) 12.5 mg (1/2 x 25 mg) PO BID PRN 05/20/24 agitation 90 days #90 tabs levofloxacin 750 mg tablet 750 mg PO Q24H #6 tabs 07/17/24 metronidazole 500 mg tablet 500 mg PO Q8H 7 days #21 tabs 07/17/24 ondansetron HCl 4 mg tablet 4 mg PO Q8H PRN nausea and 07/17/24 vomiting #10 tabs Allergies Allergy/AdvReac Type Severity Reaction Status Date / Time alendronate sodium Allergy Unknown UNKNOWN Verified 07/16/24 17:43 [ALENDRONATE SODIUM] oxycodone [From OXYCONTIN] Allergy Unknown NAUSEA & Verified 07/16/24 17:43 VOMITING, vomiting Review of Systems Review of Systems: Yes all other systems are reviewed and are negative Constitutional: Constitutional: Denies fatigue, Denies fever(s) and Denies headache(s) ENT: Reports dizziness, Denies headache(s) and Reports neck pain Cardiovascular: Cardiovascular: Denies chest pain, Reports syncope and Denies dyspnea Respiratory: Respiratory: Denies cough and Denies dyspnea Gastrointestinal: Gastrointestinal: Reports abdominal pain, Reports diarrhea, Reports nausea and Reports vomiting Musculoskeletal: Musculoskeletal: Reports neck pain Neurologic: Reports dizziness, Reports syncope and Denies headache(s) Endocrine: Endocrine: Denies fatigue [facility] Past Medical History Attestation statement: The following information was validated with the patient. Medical History Hypertension Hypothyroid Family History Family History Father Heart problem Mother No problems noted. Social History Social History Housing: Apartment Alcohol intake: never Patient Tobacco Use Status: Never used Tobacco Smoked in Last 30 Days: No Use of substances other than those prescribed or required for medical reasons: No Advance Directives: No Advance Directives Information Provided: Yes service: No Current occupational status: retired Current occupation: rt handed Cognitive needs: Yes (cane) Hearing needs: No Vision needs: No Physical Exam ED Vital Signs: Vital Signs - 24 hr 07/16/24 17:43 07/16/24 22:00 07/16/24 23:30 Temperature 97.5 F 97.4 F Pulse Rate 70 73 Respiratory Rate 15 16 Blood Pressure 121/50 L 155/77 H Pulse Oximetry 100 98 98 Oxygen Delivery Method Room Air Room Air Room Air BMI result Body Mass Index 25.0 Const Other: Alert, no sign of obvious head trauma Orientation/consciousness: patient oriented x3 Resp Effort & Inspection: normal respiratory effort Cardio Other: Normal peripheral perfusion GI Other: Abdomen is soft, nondistended, mild to moderate tenderness suprapubic to right lower abdomen, without guarding, patient does wince with the palpation of the abdomen Skin Other: Warm dry no rash Neuro General: patient oriented x3, gait normal, no focal motor deficits and CN's II-XI intact bilaterally Psych Other: Cooperative Course Reevaluation(s) Reevaluation #1: I reassessed the patient, she has no objective pain over upper abdomen, it is all across the lower abdomen, LFTs are normal, she does not have cholecystitis, P.o. challenge, Reevaluation #2: Patient ate and drank feels well, she is here with the family, they prefer her to go home, the patient wants to go home as well. She received her IV antibiotics, Time: 00:06 Medications Administered Discontinued Medications Generic Name Dose Route Start Last Admin Trade Name Freq PRN Reason Stop Dose Admin Sodium Chloride 1,000 mls @ 999 mls/hr 07/16/24 17:45 07/16/24 19:14 Ns IV 07/16/24 18:45 Infused .Q1H1M JAY Infusion Metronidazole 500 mg in 100 mls @ 100 mls/hr 07/16/24 20:50 07/16/24 22:45 Flagyl IV 07/16/24 21:49 Infused ONCE ONE Infusion Levofloxacin 750 mg in 150 mls @ 100 mls/hr 07/16/24 20:50 07/17/24 00:03 Levaquin IV 07/16/24 22:19 Infused ONCE ONE Infusion Iohexol 100 ml 07/16/24 18:16 07/16/24 18:16 Iohexol 350 Mg/Ml 100 Ml Infus..Btl IV 07/16/24 18:17 85 ml ONCE ONE Administration Ondansetron HCl 4 mg 07/16/24 17:36 07/16/24 17:53 Ondansetron Hcl 4 Mg/2 Ml Vial IVPUSH 07/16/24 17:37 4 mg ONCE ONE Administration Medical Decision Making Medical Decision Making MDM Narrative: 89-year-old female with a history of anxiety, hypothyroidism, hypertension, prior TIA, who presents after syncopal episode at home. Patient states she developed abdominal pain over the past day. Pain over lower abdomen, unable to describe the nature of her discomfort. Associated nausea vomiting diarrhea. No sick contacts with similar symptoms. Denies use of recent antibiotics, hospitalization or travel. No fevers. Patient was in the bathroom, she became dizzy and lightheaded, she subsequently passed out, landing on the bathroom floor. The fall was unwitnessed, she is not sure if she struck her head, however she is endorsing some mild generalized neck discomfort. The patient does not use a blood thinner. Problem: Age History: Per patient I have considered the following differential diagnoses: Sigmoid diverticulitis, appendicitis, UTI, ACS, new arrhythmia, dehydration, C diff, traveler's diarrhea Plan: Sounds as if patient had a vasovagal episode in the setting of actively vomiting and having diarrhea, doubtful to be ACS, she is not complaining of chest pain, we will add an EKG and trop. Unclear if she struck her head, given her age we will be scanning her head and neck. It is reassuring that she is not actively vomiting , she is not altered, she has no neurologic deficits to suggest an intracranial hemorrhage. She does have focal abdominal pain on exam, we will be scanning her abdomen as well. Giving IV fluid and Zofran. Screening labs are in process, we will collect a urine sample as well and a viral panel. She technically has no risk factors for C diff or traveler's diarrhea. I have independently reviewed the following tests: Labs:No leukocytosis, not anemic, patient has slight elevation in kidney function creatinine is now 1.51, no additional electrolyte abnormalities, LFTs normal, troponin negative, viral panel negative, UA neg EKG: normal sinus rhythm, rate of 74, right bundle branch block present, no ischemic changes, QTC 468 CT brain: IMPRESSION: 1. No acute intracranial abnormality. 2. Global cerebral volume loss and chronic microvascular ischemic changes. CT cervical spine: Findings: Vertebral alignment is within normal limits. Severe multilevel multifactorial degenerative changes. No acute fractures or dislocations. No acute findings on limited view of the intracranial contents. Soft tissues of the neck are normal. No consolidation or effusion at the lung apices. IMPRESSION: No acute findings. CT abdomen and pelvis:IMPRESSION: 1. Mild gallbladder distention with mild wall thickening of the gallbladder fundus with a trace amount of pericholecystic fluid. Correlate for cholecystitis. 2. Severe sigmoid diverticulosis with findings suggestive of mild colitis involving the distal descending colon and sigmoid colon which may represent a low-grade chronic diverticulitis or infectious colitis. Lab Data 07/16/24 17:46 07/16/24 17:46 Labs: Lab Results 07/16/24 07/16/24 07/16/24 Range/Units 17:40 17:46 20:18 WBC 8.3 (4.8-10.8) X10*3/uL RBC 3.89 L (4.20-5.50) X10*6/uL Hgb 12.5 (12.0-16.0) g/dl Hct 36.8 L (37.0-47.0) % MCV 94.6 (80.0-98.0) fL MCH 32.1 (27.0-33.0) pg MCHC 34.0 (31.0-35.0) g/dl RDW 13.4 (11.0-16.0) % Plt Count 198 (160-400) X10*3/uL MPV 9.9 (9.4-12.3) fL Immature Gran % (Auto) 1.8 H (0.0-0.4) % Neut % (Auto) 63.7 (45-73) % Lymph % (Auto) 24.9 (20-40) % [place] % (Auto) 7.4 (2-11) % Eos % (Auto) 1.7 (0-4) % Baso % (Auto) 0.5 (0-2) % Lymph # (Auto) 2.1 (1.2-4.9) X10*3/uL [place] # (Auto) 0.6 (0.1-1.2) X10*3/uL Eos # (Auto) 0.1 (0.0-0.4) X10*3/uL Baso # (Auto) 0.0 (0.0-0.2) X10*3/uL Abs Immat Gran (auto) 0.15 H (0.00-0.03) X10*3/uL Absolute Neuts (auto) 5.3 (2.0-8.3) x10*3/uL Absolute Nucleated RBC 0.000 (0.0-0.012) X10*3/uL Nucleated RBC % (auto) 0.0 (0.0-0.2) /100WBC Sodium 140 (135-145) mmol/L Potassium 4.7 (3.3-5.1) mmol/L Chloride 106 (96-108) mmol/L Carbon Dioxide 22 (22-29) mmol/L Anion Gap 17 (12-20) BUN 34 H (9-16) mg/dL Creatinine 1.51 H (0.5-1.4) mg/dL Estim Creat Clear Calc 21.8 Estimated GFR 32 Random Glucose 138 H (60-115) mg/dL Lactic Acid (0.5-2.0) mmol/L Calcium 10.1 (8.4-10.2) mg/dL Magnesium 2.5 (1.6-2.6) mg/dL Total Bilirubin 0.3 (0.0-1.0) mg/dL AST 24 (5-31) U/L ALT 16 (0-31) U/L Alkaline Phosphatase 107 (39-117) U/L Troponin I High Sens 2.7 (<3.5-17.0) ng/L Total Protein 7.2 (6.5-8.0) g/dL Albumin 4.5 (3.5-5.0) g/dL Urine Color Yellow Urine Appearance Clear Urine pH 5.5 (5.0-9.0) Ur Specific [place] >= 1.030 H (1.005-1.025) Urine Protein Negative (Neg-Trace) mg/dL Urine Glucose (UA) Negative (Negative) mg/dL Urine Ketones Negative (Negative) mg/dL Urine Blood Negative (Negative) Urine Nitrite Negative (Negative) Ur Leukocyte Esterase Negative (Negative) Influenza Type A (PCR) NEGATIVE (Negative) Influenza Type B (PCR) NEGATIVE (Negative) RSV RNA Qual (PCR) NEGATIVE (Negative) SARS-CoV-2 RNA (RT-PCR) NEGATIVE (Negative) 07/16/24 Range/Units 21:13 WBC (4.8-10.8) X10*3/uL RBC (4.20-5.50) X10*6/uL Hgb (12.0-16.0) g/dl Hct (37.0-47.0) % MCV (80.0-98.0) fL MCH (27.0-33.0) pg MCHC (31.0-35.0) g/dl RDW (11.0-16.0) % Plt Count (160-400) X10*3/uL MPV (9.4-12.3) fL Immature Gran % (Auto) (0.0-0.4) % Neut % (Auto) (45-73) % Lymph % (Auto) (20-40) % [place] % (Auto) (2-11) % Eos % (Auto) (0-4) % Baso % (Auto) (0-2) % Lymph # (Auto) (1.2-4.9) X10*3/uL [place] # (Auto) (0.1-1.2) X10*3/uL Eos # (Auto) (0.0-0.4) X10*3/uL Baso # (Auto) (0.0-0.2) X10*3/uL Abs Immat Gran (auto) (0.00-0.03) X10*3/uL Absolute Neuts (auto) (2.0-8.3) x10*3/uL Absolute Nucleated RBC (0.0-0.012) X10*3/uL Nucleated RBC % (auto) (0.0-0.2) /100WBC Sodium (135-145) mmol/L Potassium (3.3-5.1) mmol/L Chloride (96-108) mmol/L Carbon Dioxide (22-29) mmol/L Anion Gap (12-20) BUN (9-16) mg/dL Creatinine (0.5-1.4) mg/dL Estim Creat Clear Calc Estimated GFR Random Glucose (60-115) mg/dL Lactic Acid 1.1 (0.5-2.0) mmol/L Calcium (8.4-10.2) mg/dL Magnesium (1.6-2.6) mg/dL Total Bilirubin (0.0-1.0) mg/dL AST (5-31) U/L ALT (0-31) U/L Alkaline Phosphatase (39-117) U/L Troponin I High Sens (<3.5-17.0) ng/L Total Protein (6.5-8.0) g/dL Albumin (3.5-5.0) g/dL Urine Color Urine Appearance Urine pH (5.0-9.0) Ur Specific [place] (1.005-1.025) Urine Protein (Neg-Trace) mg/dL Urine Glucose (UA) (Negative) mg/dL Urine Ketones (Negative) mg/dL Urine Blood (Negative) Urine Nitrite (Negative) Ur Leukocyte Esterase (Negative) Influenza Type A (PCR) (Negative) Influenza Type B (PCR) (Negative) RSV RNA Qual (PCR) (Negative) SARS-CoV-2 RNA (RT-PCR) (Negative) Discharge Plan Discharge Clinical Impression: Colitis Patient Disposition: Home, Self-Care Instructions: Nutrition Tips for Relief of Diarrhea (ED), Colitis (ED) Additional Instructions: You were found to have colitis on the CT scan. The remainder of your labs were overall normal. See home care instructions. Take both antibiotics as directed, uses Zofran as needed for nausea. You need to follow up with your primary care provider in a week. Return precautions which would necessitate medical attention, for worsening abdominal pain, intractable vomiting, fever. Prescriptions: New metronidazole 500 mg tablet 500 mg PO Q8H 7 Days Qty: 21 0RF levofloxacin 750 mg tablet 750 mg PO Q24H Qty: 6 0RF ondansetron HCl 4 mg tablet 4 mg PO Q8H PRN (Reason: nausea and vomiting) Qty: 10 0RF No Action enalapril maleate 20 mg tablet 1.5 tab PO DAILY levothyroxine 100 mcg tablet 1 tab PO DAILY acetaminophen 325 mg capsule 650 mg PO Q6H PRN (Reason: fever or pain) Qty: 20 0RF lidocaine [Lidoderm] 5 % adhesive patch,medicated 1 patch topical DAILY Qty: 15 0RF Rx Instructions: leave on most painful area for up to 12 hrs sertraline 50 mg tablet 50 mg PO DAILY quetiapine [Seroquel] 25 mg tablet 12.5 mg PO BID PRN (Reason: agitation) 90 Days Qty: 90 1RF Print Language: Slovenian
[2024-07-16 17:50] LABS: MANUAL DIFF FLAG NO
[2024-07-16 17:51] LABS: Basophils Percent Auto 0.5 % (0-2); Eosinophils Absolute Auto 0.1 X10*3/uL (0.0-0.4); Eosinophils Percent Auto 1.7 % (0-4); Hematocrit 36.8 % (37.0-47.0); Hemoglobin 12.5 g/dl (12.0-16.0); Imm Gran Abs Auto 0.15 X10*3/uL (0.00-0.03); Imm Gran Pct Auto 1.8 % (0.0-0.4); Lymphocytes Absolute Auto 2.1 X10*3/uL (1.2-4.9); Lymphocytes Percent Auto 24.9 % (20-40); Mean Corpuscular Hemoglobin 32.1 pg (27.0-33.0); Mean Corpuscular Volume 94.6 fL (80.0-98.0); Mean Platelet Volume 9.9 fL (9.4-12.3); Monocytes Absolute Auto 0.6 X10*3/uL (0.1-1.2); Monocytes Percent Auto 7.4 % (2-11); Neutrophils Absolute Auto 5.3 x10*3/uL (2.0-8.3); Neutrophils Percent Auto 63.7 % (45-73); Platelet Count 198 X10*3/uL (160-400); Red Blood Count 3.89 X10*6/uL (4.20-5.50); Red Cell Distribution Width 13.4 % (11.0-16.0); White Blood Count 8.3 X10*3/uL (4.8-10.8)
[2024-07-16] MEDS: ondansetron HCL 4 MG/2 ML VIAL IVPUSH (17:53)
[2024-07-16] MEDS: 0.9 % Sodium Chloride 1,000 ML 999 ML IV (17:53)
[2024-07-16 18:06] LABS: Alanine Aminotransferase 16 U/L (0-31); Albumin Level 4.5 g/dL (3.5-5.0); Alkaline Phosphatase 107 U/L (39-117); Anion Gap 17 (12-20); Aspartate Amino Transferase 24 U/L (5-31); Bilirubin Total 0.3 mg/dL (0.0-1.0); Blood Urea Nitrogen 34 mg/dL (9-16); Calcium 10.1 mg/dL (8.4-10.2); Carbon Dioxide 22 mmol/L (22-29); Chloride 106 mmol/L (96-108); Creatinine Clr Calc Pharmacy 21.8; Estimated Glomerular Filt Rate 32; Glucose Random 138 mg/dL (60-115); Magnesium 2.5 mg/dL (1.6-2.6); Potassium 4.7 mmol/L (3.3-5.1); Sodium 140 mmol/L (135-145); Total Protein 7.2 g/dL (6.5-8.0)
[2024-07-16 18:12] LABS: Troponin-I High Sensitivity 2.7 ng/L (<3.5-17.0)
[2024-07-16] MEDS: iohexoL 350 MG/ML 100 ML INFUS..BTL IV (18:16)
[2024-07-16 18:27] LABS: Influenza A PCR NEGATIVE (Negative); Influenza B PCR NEGATIVE (Negative); Resp Syncy Virus RNA Qual PCR NEGATIVE (Negative); SARS COV2 PCR INHOUSE NEGATIVE (Negative)
[2024-07-16 20:24] LABS: Appearance Urine Clear; Color Urine Yellow; Glucose Urine UA Negative (Negative); Leukocyte Esterase Urine Negative (Negative); Nitrite Urine Negative (Negative); PH 5.5 (5.0-9.0); Specific Gravity - Urine >= 1.030 (1.005-1.025); Urine Blood Negative (Negative); Urine Ketones Negative (Negative); Urine Protein Negative (Neg-Trace)
[2024-07-16 21:37] LABS: Lactic Acid 1.1 mmol/L (0.5-2.0)
[2024-07-16] MEDS: metroNIDAZOLE/NS 500 MG/100 ML PIGGYBACK 100 MG IV (21:42)
[2024-07-16 22:00] VITALS: BP 155/77; PULSE 73; RESP 16; TEMP 36.3; O2SAT 98
[2024-07-16] MEDS: levoFLOXacin/D5W 750 MG/150 ML PIGGYBACK 100 MG IV (22:33)
[2024-07-16 23:30] VITALS: O2SAT 98
[2024-07-17 01:27] VITALS: BP 134/68; PULSE 68; RESP 20; TEMP 37; O2SAT 97
== END 2024-07-17 00:50 | disposition home or self-care (01) ==
PROVIDERS: Physician Assistant Medical; Emergency Provider Emergency Medicine Emergency Medical Services; PCP Internal Medicine
DX: K52.9 Noninfective gastroenteritis and colitis, unspecified (principal); R55 Syncope and collapse; I45.10 Unspecified right bundle-branch block; R94.31 Abnormal electrocardiogram [ECG] [EKG]; R51.9 Headache, unspecified; I10 Essential (primary) hypertension; M54.2 Cervicalgia; R11.0 Nausea; Z86.73 Personal history of transient ischemic attack (TIA), and cerebral infarction without residual deficits; Z79.899 Other long term (current) drug therapy; Z03.818 Encounter for observation for suspected exposure to other biological agents ruled out
CPT/HCPCS: 0241U; 36415; 70450; 71045; 72125; 74177; 80053; 81003; 83605; 83735; 84484; 85025; 87040; 93005; 96361; 96365; 96367; 96375; 99284; 99285; J1836; J1956; J2405; Q9967

== ENCOUNTER → 2024-07-16 17:22 | Outpatient (BNV) | payer MEDICARE, SELFPAY | PROVIDERS: Emergency Provider Emergency Medicine Emergency Medical Services; PCP Internal Medicine; Visit Provider Internal Medicine | DX: I45.10 Unspecified right bundle-branch block (principal) | CPT/HCPCS: 93010 ==

== ENCOUNTER → 2024-07-16 17:36 | Outpatient (BNV) | payer OTHER, SELFPAY | PROVIDERS: Emergency Provider Emergency Medicine Emergency Medical Services; PCP Internal Medicine; Visit Provider Radiology Diagnostic Radiology | DX: K57.32 Diverticulitis of large intestine without perforation or abscess without bleeding (principal); S19.9XXA Unspecified injury of neck, initial encounter; R55 Syncope and collapse | CPT/HCPCS: 70450; 71045; 72125; 74177 ==

== ENCOUNTER 2024-09-29 14:06 | Outpatient (AMB) | payer OTHER, SELFPAY ==
[2024-09-29 10:29] VITALS: BP 120/70; PULSE 77; TEMP 36.8; O2SAT 98; BMI 24.7
--- NOTE | 2024-09-29 10:29 | MHC.PC.OV ---
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: No Accompanied by: Daughter Allergies alendronate sodium (ALENDRONATE SODIUM) Allergy (Unknown, Verified 09/29/24 10:30) UNKNOWN oxycodone (From OXYCONTIN) Allergy (Unknown, Verified 09/29/24 10:30) NAUSEA & VOMITING, vomiting Tobacco use date assessed: 09/29/24 Fall risk assessment: No Falls in past year Last assessed Fall Risk: 09/29/24 Dental Screening Dental Screen Date: 09/29/24 Did you have a dental visit in the last 12 months?: Yes Did you have a dental problem in the last 6 months where you did not have access to dental care?: No HPI HPI Comments History of Present Illness Details The patient is an 89 year old female with a past medical history of hypertension, osteoporosis, hypothyroid, depression presenting for follow up Endocrine: Hypothyroid on levothyroxine CV: on enalapril. BP well controlled on medications BH: On sertraline. Generally okay but sometimes when gets agitated it stresses her out and she starts forgetting things more and becomes confused. Sleeping ok. The seroquel ordered at last visit was never received. Memory continues to decline slowly over time-would liek assessment for alzheimer MSK: Right shoulder pain, neck pain, various joint stiffness. Reports bothersome toenail fungus. Would like treatment and eval by podiatry ROS see HPI PHYSICAL EXAM: GENERAL: Alert and oriented x 3. NAD EYES: EOMI. Anicteric. HENT: Moist mucous membranes. No scleral icterus. No cervical lymphadenopathy. LUNGS: Clear to auscultation bilaterally. CARDIOVASCULAR: Regular rate and rhythm. No murmur. No JVD. ABDOMEN: Soft, non-tender +bs EXTREMITIES: No edema. Non-tender. SKIN: No rashes or lesions. Warm. NEUROLOGIC: No focal neurological deficits. CN II-XII grossly intact PSYCHIATRIC: Cooperative. Appropriate mood and affect [facility] Medical History Hypertension Hypothyroid Family History Father Heart problem Mother No problems noted. Social History Housing: Apartment Alcohol intake: never Patient Tobacco Use Status: Never used Tobacco e-Cigarette/Vaping Use: Never Used service: No Current occupational status: retired Current occupation: rt handed Cognitive needs: Yes (cane) Hearing needs: No Vision needs: No Questionnaire PHQ-9 Over the last 2 weeks, how often have you been bothered by any of the following problems? 1. Little interest or pleasure in doing things: not at all 2. Feeling down, depressed, or hopeless: nearly every day 3. Trouble falling or staying asleep, or sleeping too much: not at all 4. Feeling tired or having little energy: not at all 5. Poor appetite or overeating: not at all 6. Feeling bad about yourself - or that you are a failure or have let yourself or your family down: not at all 7. Trouble concentrating on things, such as reading the newspaper or watching television: not at all 8. Moving or speaking so slowly that other people could have noticed. Or the opposite - being so fidgety or restless that you have been moving around a lot more than usual: not at all 9. Thoughts that you would be better off or of hurting yourself in some way: not at all Total score: 3 Depression Screening Interpretation: Negative Depression Screening Done: Yes 02174 - PHQ-9 Billing: Yes Source: Developed by Drs. Mathew Marie, Shandra High, Angel Guerrero and colleagues, with an educational nat from [employer]. Thrive Questionnaire Date Thrive assessed: 09/29/24 I am a: Patient Within the past 12 months, did the food you bought not last and you didn't have the money to get more?: Never true Within the past 12 months, did you worry whether your food would run out before you got money to buy more?: Never true Do you have trouble paying for medicines?: No Do you have trouble getting transportation to medical appointments?: No Do you have trouble paying your heating and electricity bill?: No Do you have trouble taking care of your child, family member or friend?: No Do you have trouble with day-to-day activities such as bathing, preparing meals, shopping, managing finances, etc.?: No Are you currently unemployed and looking for a job?: No Are you interested in more education?: No THRIVE Score: 0 AUDIT C Alcohol Use Questionnaire (AUDIT-C) 1. How often do you have a drink containing alcohol?: Never 3. How often do you have six or more drinks on one occasion?: Never Total Score: 0 NINA-7 AMB Questionnaire NINA-7 Date NINA - 7 assessed: 09/29/24 Feeling nervous, anxious, or on edge: 0 = Not at all Not being able to stop or control worryin = Not at all Worrying too much about different things: 0 = Not at all Trouble relaxin = Not at all Being so restless that it is hard to sit still: 0 = Not at all Becoming easily annoyed or irritable: 0 = Not at all Feeling afraid as if something awful might happen: 0 = Not at all Total NINA-7 score (0-4 normal; 5-9 mild; 10-14 moderate; 15-21 severe): 0 Source: Developed by Drs. Mathew Marie, Shandra High, Angel Guerrero and colleagues, with an educational nat from [employer]. Physical exam (Primary Care) Vital Signs: Last Vital Signs Temp 98.2 F 09/29/24 10:29 Pulse 77 09/29/24 10:29 BP 120/70 09/29/24 10:29 Pulse Ox 98 09/29/24 10:29 Oxygen Delivery Method Room Air 09/29/24 10:29 BMI result Body Mass Index 24.7 Tobacco/Smoking Status: Tobacco use Status Tobacco use date assessed 09/29/24 09/29/24 10:31 Patient Tobacco Use Status Never used Tobacco 09/29/24 10:31 e-Cigarette/Vaping Use Never Used 09/29/24 10:31 PHQ-9: PHQ-9 Score PHQ-9: Total score 3 09/29/24 14:34 Depression Screening Interpretation: Negative Thrive Assessment: Date of Thrive Assessment Date Thrive assessed 09/29/24 09/29/24 10:31 Coding Level of Care Code Est Pt Level 4 (36519) Complex EM visit Add On G2211 Diagnoses Anxiety F41.9 Primary hypertension I10 Hypertension type: primary hypertension Hypothyroidism, unspecified type E03.9 Hypothyroidism type: unspecified Additional Codes PHQ-9 - 42991 - PHQ-9 Billing: Yes ([id number]) Assessment & Plan Assessment & Plan (1) Anxiety: Code(s): F41.9 - Anxiety disorder, unspecified Category: Medical (2) Hypertension: Code(s): I10 - Essential (primary) hypertension Category: Medical Qualifiers: Hypertension type: primary hypertension Qualified Code(s): I10 - Essential (primary) hypertension (3) Hypothyroid: Code(s): E03.9 - Hypothyroidism, unspecified Category: Medical Qualifiers: Hypothyroidism type: unspecified Qualified Code(s): E03.9 - Hypothyroidism, unspecified Plan 89 year old female for follow up BH: depression fairly stable, some anxiety, agitation. seroquel reordered. Memory loss-referral neuropsych testing Hypothyroid-On levothyroxine 100mcg daily HTN-controlled on current medications Orders: Orders Hemoglobin A1c 09/29/24 R73.09 - Other abnormal glucose LDL Cholesterol Direct 09/29/24 I10 - Essential (primary) hypertension Liver Panel 4 Weeks B35.1 - Tinea unguium Referrals Neuropsychiatry Referral R41.3 - Other amnesia Podiatry Referral B35.1 - Tinea unguium Medications: New terbinafine HCl 250 mg PO DAILY 90 tabs 3RF Refilled quetiapine (Seroquel) 12.5 mg (1/2 x 25 mg) PO BID PRN 90 tabs 1RF agitation 90 days Discontinued levofloxacin Discontinued Reason: Doctor's Order 750 mg PO Q24H 6 tabs 0RF
== END 2024-09-29 15:19 | disposition home or self-care (01) ==
LOC: HO.HMCHD 14:06
PROVIDERS: PCP Internal Medicine; Visit Provider Internal Medicine
DX: F41.9 Anxiety disorder, unspecified (principal); I10 Essential (primary) hypertension; E03.9 Hypothyroidism, unspecified

== ENCOUNTER 2024-09-29 14:06 | Outpatient (REF) | payer OTHER, SELFPAY ==
[2024-09-29 15:19] LABS: MANUAL DIFF FLAG NO
[2024-09-29 15:27] LABS: Hematocrit 37.7 % (37.0-47.0); Hemoglobin 12.8 g/dl (12.0-16.0); Imm Gran Abs Auto 0.07 X10*3/uL (0.00-0.03); Imm Gran Pct Auto 1.0 % (0.0-0.4); Lymphocytes Absolute Auto 1.8 X10*3/uL (1.2-4.9); Mean Corpuscular HGB Conc 34.0 g/dl (31.0-35.0); Mean Corpuscular Hemoglobin 31.6 pg (27.0-33.0); Mean Corpuscular Volume 93.1 fL (80.0-98.0); NRBC Abs Auto 0.000 X10*3/uL (0.0-0.012); NRBC Pct Auto 0.0 /100WBC (0.0-0.2); Platelet Count 185 X10*3/uL (160-400); Red Blood Count 4.05 X10*6/uL (4.20-5.50); White Blood Count 6.7 X10*3/uL (4.8-10.8)
[2024-09-29 15:49] LABS: Hemoglobin A1C 123.3607 umol/L; Total Hemoglobin (HGBA1C) 3363.6128 umol/L
[2024-09-29 16:03] LABS: Alanine Aminotransferase 14 U/L (0-31); Albumin Level 4.7 g/dL (3.5-5.0); Alkaline Phosphatase 94 U/L (39-117); Anion Gap 13 (12-20); Aspartate Amino Transferase 18 U/L (5-31); Blood Urea Nitrogen 29 mg/dL (9-16); Calcium 9.8 mg/dL (8.4-10.2); Carbon Dioxide 27 mmol/L (22-29); Chloride 104 mmol/L (96-108); Estimated Glomerular Filt Rate 43; Potassium 4.7 mmol/L (3.3-5.1); Sodium 139 mmol/L (135-145); Total Protein 7.1 g/dL (6.5-8.0)
[2024-09-29 16:33] LABS: Folate 11.2 ng/mL (> or = 4.0); Vitamin B12 277 pg/mL (200-900)
== END 2024-09-29 14:07 | disposition home or self-care (01) ==
LOC: HO.LAB 14:06
PROVIDERS: PCP Internal Medicine; Visit Provider Internal Medicine
DX: F41.9 Anxiety disorder, unspecified (principal); I10 Essential (primary) hypertension; E03.9 Hypothyroidism, unspecified; R73.09 Other abnormal glucose; R41.3 Other amnesia; B35.1 Tinea unguium; Z13.31 Encounter for screening for depression; Z13.39 Encounter for screening examination for other mental health and behavioral disorders
CPT/HCPCS: 36415; 80053; 82607; 82746; 83036; 83721; 84443; 85025; 96127

== ENCOUNTER 2025-02-10 11:12 | Outpatient (REF) | payer OTHER, SELFPAY ==
[2025-02-10 12:12] LABS: Alanine Aminotransferase 13 U/L (0-31); Albumin Level 4.6 g/dL (3.5-5.0); Alkaline Phosphatase 103 U/L (39-117); Aspartate Amino Transferase 14 U/L (5-31); Total Protein 7.1 g/dL (6.5-8.0)
--- OUTSIDE RECORDS SUMMARY | 2025-02-10 13:43 | XMS_ITS | Clinical Summary ---
Author Organization [facility] Address [address] [place] [address] Phone Care Team Providers Care Go Go Dancer Name Role Phone Pebbles Lua MD Primary Care Provider [phone] Allergies Active Allergy Reactions Criticality Noted Date Comments Alendronate Sodium 08/18/2007 GERD Medications enalapril (VASOTEC) 20 mg tablet Take 1 tablet (20 mg total) by mouth 1 (one) time each day. Active levoFLOXacin (LEVAQUIN) 750 mg tablet Take 1 tablet (750 mg total) by mouth 1 (one) time each day at the same time. 5 Active levothyroxine (SYNTHROID, LEVOTHROID) 100 mcg tablet Take 1 tablet (100 mcg total) by mouth 1 (one) time each day. Active metroNIDAZOLE (FLAGYL) 500 mg tablet Take 1 tablet (500 mg total) by mouth every 8 (eight) hours. for 7 days 5 Active ondansetron (ZOFRAN) 4 mg tablet Take 1 tablet (4 mg total) by mouth every 8 (eight) hours if needed for nausea. 5 Active QUEtiapine (SEROquel) 25 mg tablet TAKE 1/2 TABLET BY MOUTH TWICE DAILY NEEDED FOR AGITATION 5 Active sertraline (ZOLOFT) 50 mg tablet Take 1 tablet (50 mg total) by mouth 1 (one) time each day. Active terbinafine (LamISIL) 250 mg tablet Take 1 tablet (250 mg total) by mouth 1 (one) time each day. 30 tablet 2 5 04/05/19 26 Active Encounters Date Type Department Care Team Description 01/05/2025 9:45 AM EDT Consult Orthopedic Surgery - [place] [address] [place] [id number] Keaton Burton, DPM Dermatophytosis of nail (Primary Dx); Bilateral femoral artery stenosis (CMS/HCC V24); Pain in toe of right foot; Pain in toe of left foot from Last 3 Months Surgical History Surgery Date Site/Laterality Comments COLONOSCOPY 10/21/10 PROCEDURE: HISTORICAL COLONOSCOPY; COMMENT: tics; would not repeat ESOPHAGOGASTRODUODENOSCOPY 10/21/10 PROCEDURE: [place] ESOPHAGOGASTRODUODENOSCOPY TRANSORAL DIAGNOSTIC; COMMENT: normal; ROXANNE negative TOTAL KNEE ARTHROPLASTY 11/20 Left PROCEDURE: HISTORICAL TOTAL KNEE REPLACE TOTAL KNEE ARTHROPLASTY 2014 Right PROCEDURE: [place] ARTHRP KNE CONDYLE&PLATU MEDIAL&LAT COMPARTMENTS Medical History Medical History Date Comments Unspecified essential hypertension DX:Unspecified essential hypertension Unspecified hypothyroidism DX:Un specified hypothyroidism Generalized osteoarthrosis, involving multiple sites DX:Generalized osteoarthrosi s, involving multiple sites; COMMENT: arms, back, hands Overweight(278.02) 10/09/2006 DX:Overweight (278.02) Anxiety state, unspecified DX:An xiety state, unspecified; COMMENT: no meds Diverticulosis of colon (wit hout mention of hemorrhage) 10/22/2010 DX:Diverticulosis of colon ( without mention of hemorrhage) Generalized osteoarthrosis, involving multiple sites 10/09/2006 DX:Generalized osteoarthrosi s, involving multiple sites History of other specified c onditions presenting hazards to health DX:History of other speci fied conditions presenting hazards to health Family History Medical History Relation Name Comments Coronary artery disease Father Breast cancer Neg Hx Colon cancer Neg Hx Ovarian cancer Neg Hx Relation Name Status Comments Brother Alive 5 brothers, all good health x 1 dementia Daughter Alive 2 healthy Father (Age 81) [place] Maternal Grandfather [place] Maternal Grandmother [place] x pn uemonia Mother (Age 96) Alzheimers Paternal Grandfather [place] Paternal Grandmother [place] Sister Alive 5 sisters, 1 si ster with thyroid a few sisters with htn otherwise healthy Social History Tobacco Use Types Packs/Day Years Used Date Smoking Tobacco: Never Smokeless Tobacco: Never Alcohol Use Standard Drinks/Week Comments Yes 0 (1 standard drink = 0.6 oz pur e alcohol) Comments Unknown Sex and Gender Information Value Date Recorded Sex Assigned at Not on file Legal Sex Female 4:51 AM EST Gender Identity Not on file Sexual Orientation Not on file Obstetrics History Plan of Treatment Upcoming Encounters Date Type Department Care Team ([facility] st Contact Info) Description 03/16/2025 9:45 AM EST Office Visit Orthopedic Surgery - [place] [id number] [phone] Keaton Burton, DPM [address] [phone] Health Maintenance Due Date Last Done Comments Zoster Vaccines (1 of 2) 1985 RSV Immunization Adult Patients (1 - 1-dose 75+ series) 2010 Depression Screening 03/09/2024 Cholesterol Screening (Lipid Panel) 10/05/2024 Falls Risk Assessment 10/05/2024 Hypertension/CHF/CAD Annual BMP Blood Test 10/05/2024 Medicare Annual Wellness Visit 10/05/2024 Osteoporosis Screening (Bone Density Screening) 10/05/2024 Social Influencers of Health Screening 10/05/2024 COVID-19 Vaccine ( season) 2024 03/29/2022, 12/29/2020, 05/11/2020, Additional history exists Influenza Vaccine (#1) 2024 , 11/06/2019, 12/14/2018, Additional history exists DTaP,Tdap,and Td Vaccines (4 - Td or Tdap) 12/15/2030 12/15/2020, 09/15/2016, 10/09/2006 Pneumococcal Vaccine: 50+ Years Completed 08/30/2015, 11/26/2013, 11/15/2013, Additional history exists HIB Vaccines Aged Out No longer eligi ble based on patient's age to complete this topic HPV Vaccines Aged Out No longer eligi ble based on patient's age to complete this topic Hepatitis A Vaccines Aged Out No long er eligible based on patient's age to complete this topic Hepatitis B Vaccines Aged Out No long er eligible based on patient's age to complete this topic IPV Vaccines Aged Out No longer eligi ble based on patient's age to complete this topic MMR Vaccines Aged Out No longer eligi ble based on patient's age to complete this topic Meningococcal ACWY Vaccine Aged Out N o longer eligible based on patient's age to complete this topic Meningococcal B Vaccine Aged Out No l onger eligible based on patient's age to complete this topic RSV Immunization Patients Under 20 months Aged Out No longer eligible based on patient's age to complete this topic Varicella Vaccines Aged Out No longer eligible based on patient's age to complete this topic Insurance [facility] Care Teams Go Go Dancer Relationship Specialty Start Date End Date Pebbles Lua MD [address] [place] [id number] PCP - General Internal Medicine 10/05/24
== END 2025-02-10 11:13 | disposition home or self-care (01) ==
LOC: HO.LAB 11:12
PROVIDERS: PCP Internal Medicine; Visit Provider Internal Medicine
DX: B35.1 Tinea unguium (principal)
CPT/HCPCS: 36415; 80076

== ENCOUNTER 2025-02-17 10:05 | Outpatient (AMB) | payer OTHER, SELFPAY ==
--- NOTE | 2025-02-17 10:35 | A.OFFPC_ITS ---
Vital Signs 02/17/25 10:37 Height 5 ft 2 in Weight 133 lb 8 oz BMI 24.4 BP 108/56 L Blood Pressure Location Rt brachial Respiration 16 Pulse 94 Pulse Source Pulse Oximeter Temp 97.9 F Temp Source Oral Pulse Oximetry (%) 93 Oxygen Delivery Method Room Air Intake Visit Reasons: 4 month follow-up Intake Note: New patient visit Agronomy Technician Required: No Allergies alendronate sodium (ALENDRONATE SODIUM) Allergy (Unknown, Verified 02/17/25 10:35) UNKNOWN oxycodone (From OXYCONTIN) Allergy (Unknown, Verified 02/17/25 10:35) NAUSEA & VOMITING, vomiting Tobacco use date assessed: 02/17/25 Fall risk assessment: 1 Fall in past year Last assessed Fall Risk: 02/17/25 Dental Screening Dental Screen Date: 05/20/24 HPI HPI Comments History of Present Illness Details The patient is an 89 year old female with a past medical history of hypertension, osteoporosis, hypothyroid, depression presenting for follow up Endocrine: Hypothyroid on levothyroxine CV: on enalapril. BP well controlled on medications BH: On sertraline. Generally okay but sometimes when gets agitated it stresses her out and she starts forgetting things more and becomes confused. Sleeping ok. The seroquel ordered at last visit was never received. Memory continues to decline slowly over time-would liek assessment for alzheimer MSK: Right shoulder pain, neck pain, various joint stiffness. Takes tylenol as needed. toenail fungus improving on oral antifungals. LFTs have remained stable ROS see HPI PHYSICAL EXAM: GENERAL: Alert and oriented x 3. NAD EYES: EOMI. Anicteric. HENT: Moist mucous membranes. No scleral icterus. No cervical lymphadenopathy. LUNGS: Clear to auscultation bilaterally. CARDIOVASCULAR: Regular rate and rhythm. No murmur. No JVD. ABDOMEN: Soft, non-tender +bs EXTREMITIES: No edema. Non-tender. SKIN: No rashes or lesions. Warm. NEUROLOGIC: No focal neurological deficits. CN II-XII grossly intact PSYCHIATRIC: Cooperative. Appropriate mood and affect [facility] Medical History Hypertension Hypothyroid Family History Father Heart problem Mother No problems noted. Social History Housing: Apartment Alcohol intake: never Patient Tobacco Use Status: Never used Tobacco e-Cigarette/Vaping Use: Never Used service: No Current occupational status: retired Current occupation: rt handed Cognitive needs: Yes (cane) Hearing needs: No Vision needs: No Questionnaire PHQ-9 Over the last 2 weeks, how often have you been bothered by any of the following problems? 1. Little interest or pleasure in doing things: not at all 2. Feeling down, depressed, or hopeless: several days 3. Trouble falling or staying asleep, or sleeping too much: several days 4. Feeling tired or having little energy: more than half the days 5. Poor appetite or overeating: more than half the days 6. Feeling bad about yourself - or that you are a failure or have let yourself or your family down: nearly every day 7. Trouble concentrating on things, such as reading the newspaper or watching television: nearly every day 8. Moving or speaking so slowly that other people could have noticed. Or the opposite - being so fidgety or restless that you have been moving around a lot more than usual: nearly every day 9. Thoughts that you would be better off or of hurting yourself in some way: not at all Total score: 15 Depression Screening Interpretation: Positive Depression Screening Follow-up: Existing condition Depression Screening Done: Yes Source: Developed by Drs. Mathew Marie, Shandra High, Angel Guerrero and colleagues, with an educational nat from [employer]. Thrive Questionnaire Date Thrive assessed: 02/11/25 I am a: Parent/Caregiver What is your living situation today?: I have a steady place to live Within the past 12 months, did the food you bought not last and you didn't have the money to get more?: Never true Within the past 12 months, did you worry whether your food would run out before you got money to buy more?: Never true Do you have trouble paying for medicines?: No Do you have trouble getting transportation to medical appointments?: No Do you have trouble paying your heating and electricity bill?: No Do you have trouble taking care of your child, family member or friend?: No Do you have trouble with day-to-day activities such as bathing, preparing meals, shopping, managing finances, etc.?: Yes Are you currently unemployed and looking for a job?: No Are you interested in more education?: No Please select the resources that you would like help with: Care for elder or disabled and Daily support Currently or been in a relationship where the following occur: No concerns reported THRIVE Score: 0 AUDIT C Alcohol Use Questionnaire (AUDIT-C) 1. How often do you have a drink containing alcohol?: Monthly or less 2. How many drinks containing alcohol do you have on a typical day when you are drinking?: 1 or 2 3. How often do you have six or more drinks on one occasion?: Never Total Score: 1 NINA-7 AMB Questionnaire NINA-7 Date NINA - 7 assessed: 05/20/24 Feeling nervous, anxious, or on edge: 3 = Nearly every day Not being able to stop or control worryin = Nearly every day Worrying too much about different things: 3 = Nearly every day Trouble relaxin = Several days Being so restless that it is hard to sit still: 1 = Several days Becoming easily annoyed or irritable: 1 = Several days Feeling afraid as if something awful might happen: 3 = Nearly every day Total NINA-7 score (0-4 normal; 5-9 mild; 10-14 moderate; 15-21 severe): 15 Source: Developed by Drs. Mathew Marie, Shandra High, Angel Guerrero and colleagues, with an educational nat from [employer]. Physical exam (Primary Care) Vital Signs: Last Vital Signs Temp 97.9 F 02/17/25 10:37 Pulse 94 02/17/25 10:37 Resp 16 02/17/25 10:37 BP 108/56 L 02/17/25 10:37 Pulse Ox 93 02/17/25 10:37 Oxygen Delivery Method Room Air 02/17/25 10:37 BMI result Body Mass Index 24.4 Tobacco/Smoking Status: Tobacco use Status Tobacco use date assessed 02/17/25 02/17/25 10:42 Patient Tobacco Use Status Never used Tobacco 02/17/25 10:42 e-Cigarette/Vaping Use Never Used 12/12/25 10:42 PHQ-9: PHQ-9 Score PHQ-9: Total score 15 02/17/25 10:55 Depression Screening Interpretation: Positive Depression Screening Follow-up: Existing condition Thrive Assessment: Date of Thrive Assessment Date Thrive assessed 02/11/25 02/17/25 10:42 Currently or been in a relationship where the following occur: No concerns reported Coding Level of Care Code Est Pt Level 4 (94636) Diagnoses Primary hypertension I10 Hypertension type: primary hypertension Hypothyroidism, unspecified type E03.9 Hypothyroidism type: unspecified Chronic left shoulder pain M25.512; G89.29 Chronicity: chronic Anxiety F41.9 Assessment & Plan Assessment & Plan (1) Hypertension: Code(s): I10 - Essential (primary) hypertension Category: Medical Qualifiers: Hypertension type: primary hypertension Qualified Code(s): I10 - Essential (primary) hypertension (2) Hypothyroid: Code(s): E03.9 - Hypothyroidism, unspecified Category: Medical Qualifiers: Hypothyroidism type: unspecified Qualified Code(s): E03.9 - Hypothyroidism, unspecified (3) Left shoulder pain: Code(s): M25.512 - Pain in left shoulder Category: Medical Qualifiers: Chronicity: chronic Qualified Code(s): M25.512 - Pain in left shoulder; G89.29 - Other chronic pain (4) Anxiety: Code(s): F41.9 - Anxiety disorder, unspecified Category: Medical Plan HTN is well controlled on current medications Anxiety/depression-stable on current medications Left shoulder pain continues to be an issue-check xr neck, shoulder. Continues topicals Return in 4 months or sooner as needed Orders: Orders Complete Blood Count Auto Diff 3 Months E03.9 - Hypothyroidism, unspecified, F41.9 - Anxiety disorder, unspecified, I10 - Essential (primary) hypertension, R35.89 - Other polyuria, R53.83 - Other fatigue Comprehensive Met. Panel 3 Months E03.9 - Hypothyroidism, unspecified, F41.9 - Anxiety disorder, unspecified, I10 - Essential (primary) hypertension, R35.89 - Other polyuria, R53.83 - Other fatigue Lipid Panel 3 Months E03.9 - Hypothyroidism, unspecified, F41.9 - Anxiety disorder, unspecified, I10 - Essential (primary) hypertension, R35.89 - Other polyuria, R53.83 - Other fatigue TSH reflex Free T4 3 Months E03.9 - Hypothyroidism, unspecified, F41.9 - Anxiety disorder, unspecified, I10 - Essential (primary) hypertension, R35.89 - Other polyuria, R53.83 - Other fatigue Hemoglobin A1c 3 Months E03.9 - Hypothyroidism, unspecified, F41.9 - Anxiety disorder, unspecified, I10 - Essential (primary) hypertension, R35.89 - Other polyuria, R53.83 - Other fatigue XR shoulder LT min 2V 02/17/ M25.512 - Pain in left shoulder XR cervical spine 3V 02/17/25 M25.512 - Pain in left shoulder Medications: Refilled sertraline 50 mg PO DAILY 90 tabs 3RF quetiapine (Seroquel) 12.5 mg (1/2 x 25 mg) PO BID PRN 90 tabs 1RF agitation 90 days levothyroxine 100 mcg PO DAILY 90 tabs 1RF acetaminophen 650 mg (2 x 325 mg) PO Q6H PRN 20 caps 0RF fever or pain terbinafine HCl 250 mg PO DAILY 90 tabs 3RF
[2025-02-17 10:37] VITALS: BP 108/56; PULSE 94; RESP 16; TEMP 36.6; O2SAT 93; BMI 24.4
== END 2025-02-17 11:07 | disposition home or self-care (01) ==
LOC: HO.HMCFM 10:06
PROVIDERS: PCP Internal Medicine; Visit Provider Internal Medicine
DX: I10 Essential (primary) hypertension (principal); E03.9 Hypothyroidism, unspecified; M25.512 Pain in left shoulder; G89.29 Other chronic pain; F41.9 Anxiety disorder, unspecified

== ENCOUNTER → 2025-03-04 04:52 | Outpatient (BNV) | payer OTHER, SELFPAY | PROVIDERS: Emergency Provider Emergency Medicine; PCP Internal Medicine; Visit Provider Internal Medicine Cardiovascular Disease | DX: I45.10 Unspecified right bundle-branch block (principal) | CPT/HCPCS: 93010 ==

== ENCOUNTER → 2025-03-04 05:06 | Outpatient (BNV) | payer OTHER, SELFPAY | PROVIDERS: PCP Internal Medicine; Visit Provider Radiology Diagnostic Radiology | DX: M54.2 Cervicalgia (principal); S52.352A Displaced comminuted fracture of shaft of radius, left arm, initial encounter for closed fracture; M19.032 Primary osteoarthritis, left wrist; Z04.3 Encounter for examination and observation following other accident; Z96.632 Presence of left artificial wrist joint | CPT/HCPCS: 70450; 72125; 73100; 73110 ==

== ENCOUNTER 2025-03-07 09:47 | Outpatient (AMB) | payer OTHER, SELFPAY ==
--- NOTE | 2025-03-07 10:47 | A.OFFVIS_ITS ---
Vital Signs 03/07/25 10:53 Height 5 ft 2 in Weight 134 lb BMI 24.5 Intake Visit Reasons: ER F/U- LT Wrist Fracture Intake Note: Stefano 89 yr old right hand dominnat female presents today with her 2 daughters Melva and Liliana for a fracture care visit for her left wrist. States she fell at home on 03/04/25 injuring her left wrist. Seen at [facility] ED where she was xray, splinted and referred to orthopedics. Due to her hx of Dementia, she removed her splint. She was seen again where she was re-splinted and again she removed. Today patient is complaining of pain. She has bruising, swelling and discoloration. She also has numbness and tingling in the tips of her fingers since date of injury. Allergies alendronate sodium (ALENDRONATE SODIUM) Allergy (Unknown, Verified 03/07/25 10:52) UNKNOWN oxycodone (From OXYCONTIN) Allergy (Unknown, Verified 03/07/25 10:52) NAUSEA & VOMITING, vomiting HPI HPI ER F/U- LT Wrist Fracture: Details: Stefaon is an 89 year old right hand dominant woman who presents for a left distal radius fracture, S/P fall, DOI: 03/04/25. She was seen in the ED, reduced, and splinted. She was seen in the ED again the same day as she removed her splint at home. She has a Hx of significant dementia and is confusing this fracture with her old healed right wrist fracture from 2020. She is seen today with her daughters. She complains of pain, bruising, swelling, and weakness in her left wrist. She has removed her splint several times at home since her injury. Her daughters say she was trying to use her hand for daily activities, such as sweeping, after she removed her splint. She also complains of tingling in her fingertips since her DOI. [facility] Medical History Hypertension Hypothyroid Family History Father Heart problem Mother No problems noted. Social History Housing: Apartment Alcohol intake: never Patient Tobacco Use Status: Never used Tobacco e-Cigarette/Vaping Use: Never Used service: No Current occupational status: retired Current occupation: rt handed Cognitive needs: Yes (cane) Hearing needs: No Vision needs: No Review of Systems Const All systems reviewed & are unremarkable except as noted in HPI and below Physical Exam Vital Signs: BMI result Body Mass Index 24.5 Const General: cooperative, healthy appearing and no acute distress Orientation/consciousness: patient oriented x3 HEENT Head: Yes normocephalic and Yes atraumatic Eyes EOM: EOMs intact bilaterally Resp Effort & Inspection: normal respiratory effort and able to speak in complete sentences Cardio Jugular venous distension: no JVD Skin General skin exam: turgor normal Rashes: no rashes Neuro General: patient oriented x3 Extrem Other: Evaluation of Left Upper Extremity: The patient is alert, oriented, and in no acute distress Neuro: Median, Ulnar, Radial nerves motor and sensory intact and sensation is normal to the tips of all digits Vascular: Cap refill brisk ROM: With encouragement she can make a weak fist and extend all her digits Skin: No lacerations or abrasions. General: No Erythema or evidence of infection. Resolving ecchymosis & swelling about the wrist [facility] volar angular deformity Most tender over the distal radius No tenderness about the elbow No pain with proximal forearm squeeze Radiographs: 3 views of the left wrist were taken and viewed by me today in clinic. They show a distal radius fracture with ~35 degrees dorsal tilt seen on the lateral view, with shortening & negative inclination. This is compared to her post reduction radiographs from 03/04/25. Her right wrist shows a healed distal radius fracture with ~20 degrees dorsal tilt. Psych Appearance: grossly normal Affect: normal affect Attitude: cooperative Office Procedures AMB Fracture Care Details: Distal radius fracture [id number] Fracture Billing Code: Fracture Billing Code Assessment & Plan Assessment & Plan (1) Distal radius fracture, left: Code(s): S52.502A - Unspecified fracture of the lower end of left radius, initial encounter for closed fracture Category: Medical Plan Assessment & Plan: 1. Left distal radius fracture, S/P fall, DOI: 03/04/25 Reduced in ED: 03/04/25 Loss of reduction evident in today's radiographs, as patient has removed splint several times. I educated her and her daughters about this condition I discussed operative and non-operative treatment options I recommend we manage this conservatively, and she is in agreement Patient reportedly has a Hx of Dementia and removed her ED splint at home soon after her reduction. She was placed in a short arm cast I discussed activity modifications, she is to lift nothing heavier than a cellp wendy for the next 5 weeks. They should also avoid any heavy impact activities, falls, or sports activities for the next 5 weeks She will perform gentle finger ROM exercises at home If she continues to overuse her wrist or attempts to remove her cast, we will proceed with placing her in a moulded long arm cast for 2-3 weeks, and she is in agreement She will follow up in 2 weeks, with X-rays, 3V L wrist, OOP. I expect that her swelling will have receded, that today's cast will be loose by that time and that she will need to be placed back in a new gently molded cast for an additional 2 weeks. Scribed for Liliane Sun MD by Dale Ruby, medical office receptionist, on 03/07/25 at 10:55 AM, EST. Coding Level of Care Code Est Pt Level 4 (49570) Diagnoses Distal radius fracture, left S52.502A CPT Codes Fracture Care - Fracture Billing Code: Fracture Billing Code ([id number])
[2025-03-07 10:53] VITALS: BMI 24.5
== END 2025-03-07 11:40 | disposition home or self-care (01) ==
LOC: HO.HOS 09:48
PROVIDERS: PCP Internal Medicine; Visit Provider Orthopaedic Surgery
DX: S52.502A Unspecified fracture of the lower end of left radius, initial encounter for closed fracture (principal)
CPT/HCPCS: 25600; 99204

== ENCOUNTER → 2025-03-07 09:57 | Outpatient (BNV) | payer OTHER, SELFPAY | PROVIDERS: Visit Provider Radiology Diagnostic Radiology | DX: S52.572D Other intraarticular fracture of lower end of left radius, subsequent encounter for closed fracture with routine healing (principal); M85.841 Other specified disorders of bone density and structure, right hand | CPT/HCPCS: 73110 ==